=== PATIENT | female | born 1940 | race Caucasian/White ===

== ENCOUNTER 2017-08-15 10:17 | Observation (INO) ==
--- NOTE | 2017-08-15 10:35 | Emergency Department Note ---
Disposition Clinical Impression: TIA (transient ischemic attack) Altered mental status Qualifiers: Altered mental status type: unspecified Qualified Code(s): R41.82 - Altered mental status, unspecified Anemia Qualifiers: Anemia type: unspecified type Qualified Code(s): D64.9 - Anemia, unspecified Disposition: Admitted As Inpatient Condition: Fair Referrals: Luisito Mccormick MD [Primary Care Provider] - Forms: ED Satisfaction Letter Time of Disposition: 12:10 Altered Mental Status HPI - General Chief Complaint: ED Altered Mental Status Stated Complaint: Confused (I really don't Know) Time Seen by Provider: 08/15/17 10:21 Source: patient Mode of arrival: ambulatory Limitations: no limitations Nursing Notes Reviewed: Yes Vital Signs Reviewed: Yes - History of Present Illness HPI Narrative: 77-year-old female with history of hypertension, diabetes, CAD, CVA presents for evaluation of confusion. Patient's history is provided via the daughter/ POA at bedside. Daughter states the patient's last and well was approximately 6 or 7:00 last night. Daughter went to check on her this morning around 9:00 and noted the patient was not acting appropriately. States that the patient was questioning why she was at the house. Also states the patient started feeling the sink with water and then walked away. Notes the patient also had some slurred speech and that "her mouth looked funny". Daughter states she is concerned about a stroke as the patient does have a history of stroke. Daughter states the patient has not been complaining of anything over the past 24 hours. No chest pain or shortness of breath. No abdominal pain. No nausea or vomiting. Patient's blood glucose at home was 194. Patient states that she feels generally weak. No change in vision. Denies any fevers or change in medications. - Related Data Home Medications Medication Instructions Recorded Confirmed Amlodipine Besylate 10 mg PO DAILY 04/29/17 08/15/17 Aspirin [Lo-Dose Aspirin EC] 81 mg PO DAILY 04/29/17 08/15/17 Atorvastatin [Lipitor] 40 mg PO HS 04/29/17 08/15/17 Calcium Carb, Citrate/Vit D3 1 tab PO DAILY 04/29/17 08/15/17 [Calcium + D3 ER Tablet] Clopidogrel [Plavix] 75 mg PO DAILY 04/29/17 08/15/17 Dicyclomine [Bentyl] 10 mg PO TID 04/29/17 08/15/17 Ergocalciferol (VITAMIN D2) 50,000 unit PO QWEEK 04/29/17 08/15/17 [Vitamin D2] Gabapentin [Neurontin] 100 mg PO DAILY 04/29/17 08/15/17 Insulin DETEMIR [Levemir Flextouch] 68 units SQ BID 04/29/17 08/15/17 Isosorbide MONOnitrate (24 HR) 60 mg PO DAILY 04/29/17 08/15/17 [Imdur] Metformin HCl [Glucophage Xr] 750 mg PO DAILY 04/29/17 08/15/17 Metoprolol Tartrate [Lopressor] 50 mg PO BID 04/29/17 08/15/17 Mirtazapine [Remeron] 30 mg PO HS 04/29/17 08/15/17 Oxycodone HCl 15 mg PO TID 04/29/17 08/15/17 Potassium Chloride [K-Tab ER] 20 meq PO BID 04/29/17 08/15/17 Sertraline [Zoloft] 150 mg PO DAILY 04/29/17 08/15/17 Sucralfate [Carafate] 1 gm PO BID 04/29/17 08/15/17 Timolol Maleate 0.5% 1 drop OP DAILY 04/29/17 08/15/17 Venlafaxine HCl [Venlafaxine HCl 75 mg PO BID 04/29/17 08/15/17 ER] Allergies Allergy/AdvReac Type Severity Reaction Status Date / Time No Known Allergies Allergy Verified 04/29/17 10:37 All systems ED: reviewed and negative except as stated. 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 - Social History Smoking Status: Never smoker Smokeless Tobacco Status: No Alcohol use: Reports: none Drug use: Reports: none Physical Exam - General Limitations: altered mental status General appearance: alert, in no apparent distress - Head Head exam: atraumatic, normocephalic, normal inspection - Eye Eye exam: Present: normal appearance, PERRL, EOMI - ENT ENT exam: normal exam, mucous membranes moist - Neck Neck exam: Present: normal inspection, trachea midline - Chest Chest inspection: Present: normal inspection, symmetric chest wall rise - Respiratory Respiratory exam: Present: normal lung sounds bilaterally. Absent: respiratory distress - Cardiovascular Cardiovascular exam: Present: regular rate, normal rhythm. Absent: systolic murmur - Abdominal Exam Abdominal exam: Present: soft, Non-Tender - Extremities Exam Extremities exam: Present: normal inspection. Absent: pedal edema - Expanded Lower Extremity Exam Neurovascular/Tendon exam: Present: normal capillary refill - Back Exam Back exam: Present: normal inspection - Neurological Exam Neurological exam: Present: alert, CN II-XII intact, other (NIH 0). Absent: oriented X3 - Expanded Neurological Exam Patient oriented to: Present: person. Absent: place, time (Confused to situation, time.) Speech: Present: fluid speech Cranial nerves: EOM function (II, III, IV, ): Normal, facial sensation (V): Normal, facial palsy (VII): Normal, spinal accessory function (XI): Normal, tongue deviation (XII): Normal Cerebellar function: finger to nose: Normal (slowing to movement) Motor strength - LUE: 5/5 Motor strength - RUE: 5/5 Motor strength - LLE: 5/5 Motor strength - RLE: 5/5 Upper motor neuron exam: pronator drift: Absent bilaterally Coma Scale Eye Opening: Spontaneous Coma Scale Motor Response: Obeys Commands Coma Scale Verbal Response: Confused Coma Scale Total: 14 - Skin Skin exam: Present: warm, dry, intact, normal color Course Course Narrative: Patient seen and examined. Patient was not a stroke alert given Tylenol onset. Patient does have a CVA history. Patient will get an extensive evaluation including a CT of the head, chest x-ray, basic labs as well as urinalysis. Disposition likely admission. - Reevaluation(s) Reevaluation #1: Patient seen and examined. Patient is now able to recall the day. Daughter states she possibly is improving. Continues to have a nonfocal neurologic exam. Time: 12:09 Vital Signs Temperature 98.2 F 07/07/18 10:19 Pulse Rate 61 08/15/17 10:19 Respiratory Rate 18 08/15/17 10:19 Blood Pressure 160/84 08/15/17 10:19 O2 Sat by Pulse Oximetry 95 08/15/17 10:19 Temperature 98.2 F 08/15/17 10:22 Pulse Rate 59 08/15/17 11:25 Respiratory Rate 18 08/15/17 11:25 Blood Pressure 156/57 08/15/17 11:25 O2 Sat by Pulse Oximetry 95 08/15/17 11:25 Oxygen Delivery Oxygen Delivery Room Air Altered Mental Status - MDM Narrative Medical decision making narrative: Patient presents for concerns of confusion. Does not have a history of dementia. History provided via the family. Patient's alert but pleasantly confused GCS of 14. Nonfocal neurologic exam. 0. Patient's head CT was negative and with history of CVA was given an aspirin. Patient chest x-ray also was negative. Patient's labs are clinically unremarkable. Patient does have a history of anemia which appears to be at baseline from prior evaluations. Electrolytes or unremarkable. Patient will be admitted for altered mental status confusion. Etiology unknown however CVA/TIA is in the differential. Patient's symptoms can continue this progressed slightly during the ED course. Patient is not able to recall the day. Patient does not have any signs of encephalitis with no fever. Patient also likely benefit from discharge planning and formal physical therapy. - Lab Data Lab results reviewed: Yes I reviewed the patient's lab results. Result diagrams: 08/15/17 10:47 08/15/17 10:47 Lab Results 08/15/17 08/15/17 08/15/17 Range/Units 10:32 10:47 10:47 WBC 9.4 (4.3-11.1) K/mcL RBC 3.91 (3.82-4.97) M/mcL Hgb 9.9 L (11.5-15.4) g/dL Hct 31.6 L (35.3-44.9) % MCV 80.8 L (83.0-100.0) fL MCH 25.3 L (28.0-33.3) pg MCHC 31.3 L (31.6-35.5) g/dL RDW 16.3 H (11.5-14.5) % Plt Count 333 (140-400) K/mcL MPV 9.0 L (9.4-12.4) fL Immature Gran % 0.2 (0-4) % Seg Neutrophils % 61.5 % Lymphocytes % 26.5 % Monocytes % 9.0 % Eosinophils % 2.5 % Basophils % 0.3 % Neutrophils # 5.8 (1.6-8.9) K/mcL Lymphocytes # 2.5 (0.6-4.6) K/mcL Monocytes # 0.9 (0.0-1.3) K/mcL Eosinophils # 0.2 (0.0-0.6) K/mcL Basophils # 0.0 (0.0-0.2) K/mcL PT 11.0 (9.4-12.1) Seconds INR 1.0 Sodium (136-145) mEq/L Potassium (3.5-5.1) mEq/L Chloride (98-107) mEq/L Carbon Dioxide (23-29) mEq/L BUN (8-23) mg/dL Creatinine (0.60-1.20) mg/dL Est GFR ( Amer) (> 60) Est GFR (Non-Af Amer) (> 60) BUN/Creatinine Ratio (6-26) Glucose (70-105) mg/dL POC Glucose 172 H (70-99) mg/dL Calculated Osmolality (280-300) Calcium (8.6-10.3) mg/dL Total Bilirubin (0.3-1.0) mg/dL Direct Bilirubin (0.0-0.2) mg/dL Indirect Bilirubin (0.0-1.2) mg/dL AST (13-39) Units/L ALT (7-52) Units/L Alkaline Phosphatase (34-104) Units/L Troponin I (< 0.04) ng/mL Serum Total Protein (6.4-8.9) g/dL Albumin (3.5-5.7) g/dL Globulin (2.4-3.5) g/dL Albumin/Globulin Ratio (1.1-2.2) Urine Color (Yellow) Urine Clarity (Clear) Urine pH (5.0-8.0) pH Units Ur Specific [place] (1.010-1.025) Urine Protein (Neg-Trace) mg/dL Urine Glucose (UA) (Normal) mg/dL Urine Ketones (Negative) mg/dL Urine Blood (Negative) Urine Nitrite (Negative) Urine Bilirubin (Negative) Urine Urobilinogen (Normal) mg/dL Ur Leukocyte Esterase (Negative) Urine Microscopic RBC (0-3) per hpf Urine Microscopic WBC (0-3) per hpf Ur Squamous Epith Cells (None-Few) per lpf Urine Bacteria (None-Few) per hpf Hyaline Casts (None-Few) per lpf Ur Culture Indicated? (NO) 08/15/17 08/15/17 Range/Units 10:47 11:51 WBC (4.3-11.1) K/mcL RBC (3.82-4.97) M/mcL Hgb (11.5-15.4) g/dL Hct (35.3-44.9) % MCV (83.0-100.0) fL MCH (28.0-33.3) pg MCHC (31.6-35.5) g/dL RDW (11.5-14.5) % Plt Count (140-400) K/mcL MPV (9.4-12.4) fL Immature Gran % (0-4) % Seg Neutrophils % % Lymphocytes % % Monocytes % % Eosinophils % % Basophils % % Neutrophils # (1.6-8.9) K/mcL Lymphocytes # (0.6-4.6) K/mcL Monocytes # (0.0-1.3) K/mcL Eosinophils # (0.0-0.6) K/mcL Basophils # (0.0-0.2) K/mcL PT (9.4-12.1) Seconds INR Sodium 133 L (136-145) mEq/L Potassium 4.5 (3.5-5.1) mEq/L Chloride 101 (98-107) mEq/L Carbon Dioxide 25 (23-29) mEq/L BUN 22 (8-23) mg/dL Creatinine 0.88 (0.60-1.20) mg/dL Est GFR ( Amer) > 60 (> 60) Est GFR (Non-Af Amer) > 60 (> 60) BUN/Creatinine Ratio 25 (6-26) Glucose 161 H (70-105) mg/dL POC Glucose (70-99) mg/dL Calculated Osmolality 283 (280-300) Calcium 9.1 (8.6-10.3) mg/dL Total Bilirubin 0.2 L (0.3-1.0) mg/dL Direct Bilirubin 0.0 (0.0-0.2) mg/dL Indirect Bilirubin 0.2 (0.0-1.2) mg/dL AST 16 (13-39) Units/L ALT 10 (7-52) Units/L Alkaline Phosphatase 82 (34-104) Units/L Troponin I < 0.03 (< 0.04) ng/mL Serum Total Protein 6.9 (6.4-8.9) g/dL Albumin 3.9 (3.5-5.7) g/dL Globulin 3.0 (2.4-3.5) g/dL Albumin/Globulin Ratio 1.3 (1.1-2.2) Urine Color Yellow (Yellow) Urine Clarity Clear (Clear) Urine pH 6.0 (5.0-8.0) pH Units Ur Specific [place] 1.014 (1.010-1.025) Urine Protein Negative (Neg-Trace) mg/dL Urine Glucose (UA) Normal (Normal) mg/dL Urine Ketones Negative (Negative) mg/dL Urine Blood Negative (Negative) Urine Nitrite Negative (Negative) Urine Bilirubin Negative (Negative) Urine Urobilinogen Normal (Normal) mg/dL Ur Leukocyte Esterase Trace H (Negative) Urine Microscopic RBC 3-5 H (0-3) per hpf Urine Microscopic WBC 0-3 (0-3) per hpf Ur Squamous Epith Cells Many H (None-Few) per lpf Urine Bacteria None Seen (None-Few) per hpf Hyaline Casts None Seen (None-Few) per lpf Ur Culture Indicated? NO. A (NO) - Radiology Data Radiology results reviewed: Yes I reviewed the patient's radiology results. Chest X-Ray 08/15/17 10:32 IMPRESSION: No acute process. D/ / Jan Reagan MD / Jan Reagan MD Interpreting Provider: Jan Reagan MD Head CT 08/15/17 10:32 IMPRESSION: No acute intracranial abnormality. Diffuse atrophic changes with findings suggesting chronic microvascular ischemia D/ / Jan Reagan MD / Jan Reagan MD Interpreting Provider: Jan Reagan MD - EKG Data EKG attestation: Yes I reviewed and interpreted this EKG. EKG shows normal: sinus rhythm Rate: normal Rhythm: NSR [place]/QRS: left axis deviation, LBBB QTc: other (488) Interpretation: no acute changes, nonspecific ST-T wave changes TPA Checklist - LKW: 3-4.5 hrs Add. Warnings/Precautions Patient/family understanding: The patient/family members have been counseled and understood the risk, benefit , and alternatives of treatment. S.B.Meghan - S.Laquita Situation: Demographics Background: Presenting Complaint Assessment: Vital Signs, Course and respsone to treatment, Patient/Family Expectation Recommendation: Barrier(s) to disposition, Recommendation based on pending studies, treatments, or consults S.B.AGaudencio Report Given to: Dr. Lee Mccarthy Repor Time: 12:10
[2017-08-15 11:01] LABS: Basophils % 0.3 %; Eosinophils # 0.2 K/mcL (0.0-0.6); Eosinophils % 2.5 %; Hematocrit 31.6 % (35.3-44.9); Hemoglobin 9.9 g/dL (11.5-15.4); Immature Granulocytes % 0.2 % (0-4); Lymphocytes # 2.5 K/mcL (0.6-4.6); Lymphocytes % 26.5 %; Mean Corpuscular HGB Conc 31.3 g/dL (31.6-35.5); Mean Corpuscular Hemoglobin 25.3 pg (28.0-33.3); Mean Corpuscular Volume 80.8 fL (83.0-100.0); Monocytes # 0.9 K/mcL (0.0-1.3); Neutrophils # 5.8 K/mcL (1.6-8.9); Platelet Count 333 K/mcL (140-400); Red Blood Count 3.91 M/mcL (3.82-4.97); Red Cell Distribution Width 16.3 % (11.5-14.5); Segmented Neutrophils % 61.5 %
[2017-08-15 11:22] LABS: Troponin I < 0.03 ng/mL (< 0.04)
[2017-08-15 11:24] LABS: Alanine Aminotransferase 10 Units/L (7-52); Albumin 3.9 g/dL (3.5-5.7); Albumin/Globulin Ratio 1.3 (1.1-2.2); Alkaline Phosphatase 82 Units/L (34-104); Aspartate Amino Transferase 16 Units/L (13-39); BUN/Creatinine Ratio 25 (6-26); Bilirubin,Indirect 0.2 mg/dL (0.0-1.2); Bilirubin,Total 0.2 mg/dL (0.3-1.0); Blood Urea Nitrogen 22 mg/dL (8-23); Calcium 9.1 mg/dL (8.6-10.3); Carbon Dioxide 25 mEq/L (23-29); Chloride 101 mEq/L (98-107); Glucose 161 mg/dL (70-105); Osmolality,Calculated 283 (280-300); Potassium 4.5 mEq/L (3.5-5.1); Sodium 133 mEq/L (136-145); Total Protein 6.9 g/dL (6.4-8.9); eGFR For African Americans > 60 (> 60); eGFR For Non-African Americans > 60 (> 60)
[2017-08-15] MEDS ORDERED: Aspirin 325 MG TABLET PO ONE (11:28)
[2017-08-15 11:58] LABS: Bilirubin,Urine Negative (Negative); Blood,Urine Negative (Negative); Clarity,Urine Clear (Clear); Color,Urine Yellow (Yellow); Glucose,Urine (UA) Normal (Normal); Ketones,Urine Negative (Negative); Leukocyte Esterase,Urine Trace (Negative); Nitrite,Urine Negative (Negative); Protein,Urine Negative (Neg-Trace); Specific Gravity,Urine 1.014 (1.010-1.025); Urobilinogen,Urine Normal (Normal)
[2017-08-15 12:00] LABS: Bacteria,Urine None Seen per hpf (None-Few); Hyaline Casts,Urine None Seen per lpf (None-Few); Squamous Epithelial Cell,Urine Many per lpf (None-Few); WBC,Urine 0-3 per hpf (0-3)
--- NOTE | 2017-08-15 12:46 | Emergency Department Note ---
Disposition Clinical Impression: TIA (transient ischemic attack) Altered mental status Qualifiers: Altered mental status type: unspecified Qualified Code(s): R41.82 - Altered mental status, unspecified Anemia Qualifiers: Anemia type: unspecified type Qualified Code(s): D64.9 - Anemia, unspecified Disposition: Admitted As Inpatient Condition: Fair General Adult HPI - General Chief complaint: ED Altered Mental Status Stated complaint: Confused (I really don't Know) Time Seen by Provider: 08/15/17 10:21 Source: patient Mode of arrival: ambulatory Limitations: altered mental status - History of Present Illness Pain Scale: 0 - Related Data Home Medications Medication Instructions Recorded Confirmed Amlodipine Besylate 10 mg PO DAILY 04/29/17 08/15/17 Aspirin [Lo-Dose Aspirin EC] 81 mg PO DAILY 04/29/17 08/15/17 Atorvastatin [Lipitor] 40 mg PO HS 04/29/17 08/15/17 Calcium Carb, Citrate/Vit D3 1 tab PO DAILY 04/29/17 08/15/17 [Calcium + D3 ER Tablet] Clopidogrel [Plavix] 75 mg PO DAILY 04/29/17 08/15/17 Dicyclomine [Bentyl] 10 mg PO TID 04/29/17 08/15/17 Ergocalciferol (VITAMIN D2) 50,000 unit PO QWEEK 04/29/17 08/15/17 [Vitamin D2] Gabapentin [Neurontin] 100 mg PO DAILY 04/29/17 08/15/17 Insulin DETEMIR [Levemir Flextouch] 68 units SQ BID 04/29/17 08/15/17 Isosorbide MONOnitrate (24 HR) 60 mg PO DAILY 04/29/17 08/15/17 [Imdur] Metformin HCl [Glucophage Xr] 750 mg PO DAILY 04/29/17 08/15/17 Metoprolol Tartrate [Lopressor] 50 mg PO BID 04/29/17 08/15/17 Mirtazapine [Remeron] 30 mg PO HS 04/29/17 08/15/17 Oxycodone HCl 15 mg PO TID 04/29/17 08/15/17 Potassium Chloride [K-Tab ER] 20 meq PO BID 04/29/17 08/15/17 Sertraline [Zoloft] 150 mg PO DAILY 04/29/17 08/15/17 Sucralfate [Carafate] 1 gm PO BID 04/29/17 08/15/17 Timolol Maleate 0.5% 1 drop OP DAILY 04/29/17 08/15/17 Venlafaxine HCl [Venlafaxine HCl 75 mg PO BID 04/29/17 08/15/17 ER] Allergies Allergy/AdvReac Type Severity Reaction Status Date / Time No Known Allergies Allergy Verified 04/29/17 10:37 Constitutional: Reports: as per HPI Cardiovascular: Denies: chest pain Respiratory: Denies: cough, dyspnea Gastrointestinal: Denies: abdominal pain, nausea, vomiting Past Medical History - Past Medical History Medical history: Reports: arthritis, cancer, coronary artery disease, diabetes, hyperlipidemia, hypertension, osteoporosis, other Surgical history: Reports: appendectomy, hysterectomy, knee replacement, other Psychiatric history: Reports: depression 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 - Social History Smoking Status: Never smoker Smokeless Tobacco Status: No Alcohol use: Reports: none Drug use: Reports: none Physical Exam - General Limitations: altered mental status General appearance: alert, in no apparent distress Course Vital Signs Temperature 98.2 F 08/15/17 10:19 Pulse Rate 61 08/15/17 10:19 Respiratory Rate 18 08/15/17 10:19 Blood Pressure 160/84 08/15/17 10:19 O2 Sat by Pulse Oximetry 95 08/15/17 10:19 Temperature 98.2 F 08/15/17 10:22 Pulse Rate 59 08/15/17 11:25 Respiratory Rate 18 08/15/17 11:25 Blood Pressure 156/57 08/15/17 11:25 O2 Sat by Pulse Oximetry 95 08/15/17 11:25 Oxygen Delivery Oxygen Delivery Room Air Medical Decision Making - Lab Data Result diagrams: 08/15/17 10:47 08/15/17 10:47 Lab Results 08/15/17 08/15/17 08/15/17 Range/Units 10:32 10:47 10:47 WBC 9.4 (4.3-11.1) K/mcL RBC 3.91 (3.82-4.97) M/mcL Hgb 9.9 L (11.5-15.4) g/dL Hct 31.6 L (35.3-44.9) % MCV 80.8 L (83.0-100.0) fL MCH 25.3 L (28.0-33.3) pg MCHC 31.3 L (31.6-35.5) g/dL RDW 16.3 H (11.5-14.5) % Plt Count 333 (140-400) K/mcL MPV 9.0 L (9.4-12.4) fL Immature Gran % 0.2 (0-4) % Seg Neutrophils % 61.5 % Lymphocytes % 26.5 % Monocytes % 9.0 % Eosinophils % 2.5 % Basophils % 0.3 % Neutrophils # 5.8 (1.6-8.9) K/mcL Lymphocytes # 2.5 (0.6-4.6) K/mcL Monocytes # 0.9 (0.0-1.3) K/mcL Eosinophils # 0.2 (0.0-0.6) K/mcL Basophils # 0.0 (0.0-0.2) K/mcL PT 11.0 (9.4-12.1) Seconds INR 1.0 Sodium (136-145) mEq/L Potassium (3.5-5.1) mEq/L Chloride (98-107) mEq/L Carbon Dioxide (23-29) mEq/L BUN (8-23) mg/dL Creatinine (0.60-1.20) mg/dL Est GFR ( Amer) (> 60) Est GFR (Non-Af Amer) (> 60) BUN/Creatinine Ratio (6-26) Glucose (70-105) mg/dL POC Glucose 172 H (70-99) mg/dL Calculated Osmolality (280-300) Calcium (8.6-10.3) mg/dL Total Bilirubin (0.3-1.0) mg/dL Direct Bilirubin (0.0-0.2) mg/dL Indirect Bilirubin (0.0-1.2) mg/dL AST (13-39) Units/L ALT (7-52) Units/L Alkaline Phosphatase (34-104) Units/L Troponin I (< 0.04) ng/mL Serum Total Protein (6.4-8.9) g/dL Albumin (3.5-5.7) g/dL Globulin (2.4-3.5) g/dL Albumin/Globulin Ratio (1.1-2.2) Urine Color (Yellow) Urine Clarity (Clear) Urine pH (5.0-8.0) pH Units Ur Specific [place] (1.010-1.025) Urine Protein (Neg-Trace) mg/dL Urine Glucose (UA) (Normal) mg/dL Urine Ketones (Negative) mg/dL Urine Blood (Negative) Urine Nitrite (Negative) Urine Bilirubin (Negative) Urine Urobilinogen (Normal) mg/dL Ur Leukocyte Esterase (Negative) Urine Microscopic RBC (0-3) per hpf Urine Microscopic WBC (0-3) per hpf Ur Squamous Epith Cells (None-Few) per lpf Urine Bacteria (None-Few) per hpf Hyaline Casts (None-Few) per lpf Ur Culture Indicated? (NO) 08/15/17 08/15/17 Range/Units 10:47 11:51 WBC (4.3-11.1) K/mcL RBC (3.82-4.97) M/mcL Hgb (11.5-15.4) g/dL Hct (35.3-44.9) % MCV (83.0-100.0) fL MCH (28.0-33.3) pg MCHC (31.6-35.5) g/dL RDW (11.5-14.5) % Plt Count (140-400) K/mcL MPV (9.4-12.4) fL Immature Gran % (0-4) % Seg Neutrophils % % Lymphocytes % % Monocytes % % Eosinophils % % Basophils % % Neutrophils # (1.6-8.9) K/mcL Lymphocytes # (0.6-4.6) K/mcL Monocytes # (0.0-1.3) K/mcL Eosinophils # (0.0-0.6) K/mcL Basophils # (0.0-0.2) K/mcL PT (9.4-12.1) Seconds INR Sodium 133 L (136-145) mEq/L Potassium 4.5 (3.5-5.1) mEq/L Chloride 101 (98-107) mEq/L Carbon Dioxide 25 (23-29) mEq/L BUN 22 (8-23) mg/dL Creatinine 0.88 (0.60-1.20) mg/dL Est GFR ( Amer) > 60 (> 60) Est GFR (Non-Af Amer) > 60 (> 60) BUN/Creatinine Ratio 25 (6-26) Glucose 161 H (70-105) mg/dL POC Glucose (70-99) mg/dL Calculated Osmolality 283 (280-300) Calcium 9.1 (8.6-10.3) mg/dL Total Bilirubin 0.2 L (0.3-1.0) mg/dL Direct Bilirubin 0.0 (0.0-0.2) mg/dL Indirect Bilirubin 0.2 (0.0-1.2) mg/dL AST 16 (13-39) Units/L ALT 10 (7-52) Units/L Alkaline Phosphatase 82 (34-104) Units/L Troponin I < 0.03 (< 0.04) ng/mL Serum Total Protein 6.9 (6.4-8.9) g/dL Albumin 3.9 (3.5-5.7) g/dL Globulin 3.0 (2.4-3.5) g/dL Albumin/Globulin Ratio 1.3 (1.1-2.2) Urine Color Yellow (Yellow) Urine Clarity Clear (Clear) Urine pH 6.0 (5.0-8.0) pH Units Ur Specific [place] 1.014 (1.010-1.025) Urine Protein Negative (Neg-Trace) mg/dL Urine Glucose (UA) Normal (Normal) mg/dL Urine Ketones Negative (Negative) mg/dL Urine Blood Negative (Negative) Urine Nitrite Negative (Negative) Urine Bilirubin Negative (Negative) Urine Urobilinogen Normal (Normal) mg/dL Ur Leukocyte Esterase Trace H (Negative) Urine Microscopic RBC 3-5 H (0-3) per hpf Urine Microscopic WBC 0-3 (0-3) per hpf Ur Squamous Epith Cells Many H (None-Few) per lpf Urine Bacteria None Seen (None-Few) per hpf Hyaline Casts None Seen (None-Few) per lpf Ur Culture Indicated? NO. A (NO) Attestation Statement - Attestation Attestation: I examined this patient and my medical decision-making was reviewed with the Resident Physician. I agree with the documented findings, disposition and treatment plan as described except to the extent set forth below. 77 year old femael who is altered and disoriented but alert. PAtinet has concerns for TIA, and appears confused at bedside, LKW was last night. We will admit to medicine for TIA rule out CVA
[2017-08-15] MEDS ORDERED: Naloxone 0.4 MG/ML INJ IVP PRN (13:02)
[2017-08-15] MEDS ORDERED: Acetaminophen 325 MG TABLET PO PRN (13:02)
[2017-08-15] MEDS ORDERED: D5% in Water 1,000 ML IVC PRN (13:09)
[2017-08-15] MEDS ORDERED: Dextrose Gel 15 GM/37.5 ML TUBE PO PRN ×2 (13:09)
[2017-08-15] MEDS ORDERED: *HR* Dextrose 50 % in Water (Syg) 50 ML SYRINGE IVP PRN (13:09)
--- NOTE | 2017-08-15 13:26 | Internal Med History&Physical ---
<MigdaliaGilbert machuca - Last Filed: 08/15/17 14:34> Date of Encounter: 08/15/17 Time of Encounter: 12:30 Internal Medicine - H&P: HPI Chief complaint: CVA sx Admitted From: Emergency Dept Plans for Post Hospital Care: Home History of present illness: Ms. Stoddard is a 77 year old female w/PMH of arthritis, cervical cancer in 1968 and ovarian cancer in 1996, CAD, diabetes controlled with oral anti- hyperglycemic medications and insulin, HLD, HTN, and osteoporosis presents from the ED with chief complaint of stroke-like symptoms that began this morning. Pts. daughter reports at 7 p.m. last night the pt. was acting normal and this morning she was altered. Pt. reports not remembering going to bed or events that occurred this morning. Pt. reports right-sided weakness from previous stroke 4-5 years ago. Pt. denies recent illness, fever, chills, nausea, vomiting , changes in vision, headache, chest pain, shortness of breath, chest congestion , abdominal pain, diarrhea, constipation, dizziness, lightheadedness, numbness, tingling, pre-syncope, or syncope. Past Med Surg Social Fam HX - Past Medical History Source: patient, old records reviewed Medical history: arthritis, cancer (Cervical in 1968 and Ovarian in 1996), coronary artery disease, diabetes, hyperlipidemia, hypertension, osteoporosis, other Additional medical history: Chronic Back Pain DDD and stenosis. Anxiety. Depression. Vit D deficiency. DM2. DLD. DVT. Scoliosis. HLD. Diverticulosis. CP. UTI. Hypomagnemia. SOB. LHC small Ramus 80% stenosis Psychiatric history: depression - Past Surgical History Surgical History: appendectomy, hysterectomy (Total), knee replacement, other Additional surgical history: bilat total knee 2002. HYST 1968. Ovarian Cancer 1986. Ventral Hernia 1998. knee scope. TIA 1995. Heart cath no stents. EGD - Social History Smoking Status: Never smoker Smokeless Tobacco Status: No Alcohol use: none Drug use: none Current living situation: Home Activity Level: Independent ambulation, Uses cane/walker Recent Out of Country Travel Within the Last 8 Weeks: No Exposure or Possible Exposure to Illness During Travel: No - Family History Mother Race: Family Member Ethnicity: Non- Living Status: Age at : 65 Cause of : Female cancer Hx Family Cancer: Yes (Breast, Female) Father History Unknown: Yes Race: Sister Race: Family Member Ethnicity: Non- Living Status: Age at : 49 Cause of : Breast cancer Hx Family Cancer: Yes (Breast) Grandfather Race: Family Member Ethnicity: Non- Living Status: Age at : 72 Cause of : CVA Hx Family Cardiac Disorders: Yes (CVA) Hx Family Neurologic Disorders: Yes (CVA) Internal Medicine - H&P: Meds Amlodipine Besylate 10 mg PO DAILY 04/29/17 [History] Aspirin [Lo-Dose Aspirin EC] 81 mg PO DAILY 04/29/17 [History] Atorvastatin [Lipitor] 40 mg PO HS 04/29/17 [History] Calcium Carb, Citrate/Vit D3 [Calcium + D3 ER Tablet] 1 tab PO DAILY 04/29/17 [ History] Clopidogrel [Plavix] 75 mg PO DAILY 04/29/17 [History] Dicyclomine [Bentyl] 10 mg PO TID 04/29/17 [History] Ergocalciferol (VITAMIN D2) [Vitamin D2] 50,000 unit PO QWEEK 04/29/17 [History] Gabapentin [Neurontin] 100 mg PO DAILY 04/29/17 [History] Insulin DETEMIR [Levemir Flextouch] 68 units SQ BID 04/29/17 [History] Isosorbide MONOnitrate (24 HR) [Imdur] 60 mg PO DAILY 04/29/17 [History] Metformin HCl [Glucophage Xr] 750 mg PO DAILY 04/29/17 [History] Metoprolol Tartrate [Lopressor] 50 mg PO BID 04/29/17 [History] Mirtazapine [Remeron] 30 mg PO HS 04/29/17 [History] Oxycodone HCl 15 mg PO TID 04/29/17 [History] Potassium Chloride [K-Tab ER] 20 meq PO BID 04/29/17 [History] Sertraline [Zoloft] 150 mg PO DAILY 04/29/17 [History] Sucralfate [Carafate] 1 gm PO BID 04/29/17 [History] Timolol Maleate 0.5% 1 drop OP DAILY 04/29/17 [History] Venlafaxine HCl [Venlafaxine HCl ER] 75 mg PO BID 04/29/17 [History] 3 Allergy/AdvReac Type Severity Reaction Status Date / Time No Known Allergies Allergy Verified 04/29/17 10:37 All Systems PM: A 10-system review of systems was performed and is negative for pertinent findings except as documented above in the HPI. - Constitutional Constitutional: as per HPI, weakness (Right-sided in UE/LE), no chills, no fever (s), no night sweats - EENT Eyes: no change in vision, no discharge, no pain, no photophobia Ears: no ear discharge, no ear pain, no tinnitus Nose, mouth and throat: no dysphagia, no nasal discharge, no neck pain, no sore throat - Breasts Breasts: as per HPI - Cardiovascular Cardiovascular ROS IM: no chest pain, no diaphoresis, no dyspnea, no lightheadedness, no palpitations, no syncope - Respiratory Respiratory: no cough, no dyspnea, no wheezing, no excessive phlegm production - Gastrointestinal Gastrointestinal: no abdominal pain, no diarrhea, no hematemesis, no hematochezia, no melena, no nausea, no vomiting - Genitourinary Genitourinary: no change in urinary stream, no dysuria, no flank pain, no hematuria Menstruation: as per HPI, post hysterectomy (Total) - Musculoskeletal Musculoskeletal ROS IM: as per HPI, arthralgias, no numbness, no tingling - Integumentary Integumentary IM: as per HPI, no rash, no unusual bruising - Neurological Neurological ROS: as per HPI, confusion, disequilibrium, weakness (Weakness of right-sided UE/LE), no convulsions, no focal weakness, no numbness, no tingling , no tremor(s) - Psychiatric Psychiatric: as per HPI, depression - Endocrine Endocrine IM: as per HPI - Hematologic/Lymphatic Hematologic/Lymphatic: no easy bruising - Allergic/Immunologic Allergic/Immunologic: as per HPI - Constitutional Vitals: Temp Pulse Resp BP Pulse Ox 98.2 F 59 18 147/69 95 08/15/17 10:22 08/15/17 11:25 08/15/17 12:46 08/15/17 12:46 08/15/17 11:25 General appearance: Present: cooperative, A&O X 3, pleasant, no acute distress, obese, answers questions appropriately - Head Head exam: Present: atraumatic, normocephalic - Eye Eye exam: Present: PERRL, conjuntiva pink, sclera anicteric Pupils: Present: PERRL - ENT ENT exam: Present: normal exam - Neck Neck exam general surgery: Present: normal inspection, supple, trachea midline. Absent: lymphadenopathy - Respiratory Respiratory exam: Present: CTAB. Absent: accessory muscle use, rales, rhonchi, wheezes - Cardiovascular Cardiovascular exam: Present: bradycardia, +S1, +S2. Absent: diastolic murmur, gallop, rubs, systolic murmur - GI/Abdominal GI/Abdominal exam: Present: normal bowel sounds, soft, no peritoneal signs. Absent: distended, tenderness - Rectal Rectal exam: Present: deferred - Additional comments: exam deferred. - Extremities Exam Extremities exam: Present: warm, radial pulses palpable and symmetrical. Absent : calf tenderness, cyanotic, pedal edema - Back Exam Back exam: Present: normal inspection - Neurological Exam Neurological exam: Present: alert, CN II-XII intact, oriented X3, no focal deficits. Absent: pronater drift, facial droop, speech deficit - Psychiatric Psychiatric exam: Present: normal affect, normal mood - Skin Skin exam: Present: dry, intact Internal Med - H&P Results - Labs CBC & Chem 7: 08/15/17 10:47 08/15/17 10:47 - EKG Data EKG shows normal: sinus rhythm Rate: bradycardia - EKG Data Prior EKG available for review: yes EKG comments: 08/15/17 13:33 EKG dated 04/15/17 shows sinus rhythm with marked left axis deviation and LBBB. EKG dated 08/15/17 shows sinus bradycardia and LBBB. - Diagnostic Studies CT scan - head Additional comments: Impressions Head CT 08/15/17 10:32 IMPRESSION: No acute intracranial abnormality. Diffuse atrophic changes with findings suggesting chronic microvascular ischemia D/ / Jan Reagan MD / Jan Reagan MD Interpreting Provider: Jan Reagan MD Chest x-ray Additional comments: Impressions Chest X-Ray 08/15/17 10:32 IMPRESSION: No acute process. D/ / Jan Reagan MD / Jan Reagan MD Interpreting Provider: Jan Reagan MD - Assessment and plan (1) TIA (transient ischemic attack) Current Visit: Yes Status: Acute Assessment and plan: Acute AMS since this morning. Pts. daughter reports facial droop. Pt. has previous hx of CVA approx. 4-5 years ago. NIHSS scale. Neuro assessments Q2HR. Padding to bed rails. On exam, pt. has no focal deficits, speech slurring, facial droop, or pronator drift. Right-sided weakness in UE/LE as residual from previous CVA. CT unremarkable. Dysphagia screen. NPO until dysphagia screen passed. Aspirin. Echocardiogram. Bilateral carotid Dopplers. MRI of head/brain ordered. Neurology consult ordered and discussed w/Dr. Silva and I appreciate the consult and recommendations as always. Heparin SQ for DVT prophylaxis after MRI resulted. Pt. discussed w/Dr. Howard who agrees w/plan of care. Pt. is high risk for neurological event and further morbidity based on current sx, hx of previous CVA, familial hx of from CVA (grandfather); and risk factors of CAD, DM, HLD, and HTN. Observation. (2) Altered mental status Current Visit: Yes Status: Acute Assessment and plan: Acute AMS since this morning. Pt. has previous hx of CVA approx. 4-5 years ago. NIHSS scale. Neuro assessments Q2HR. Padding to bed rails. On exam, pt. has no focal deficits, speech slurring, facial droop, or pronator drift. Right-sided weakness in UE/LE as residual from previous CVA. CT unremarkable. Echocardiogram. Bilateral carotid Dopplers. MRI of head/brain ordered. Neurology consult ordered and discussed w/Dr. Silva and I appreciate the consult and recommendations as always. Qualifiers: Altered mental status type: unspecified Qualified Code(s): R41.82 - Altered mental status, unspecified (3) Depression Current Visit: Yes Status: Chronic Assessment and plan: Hx of chronic depression. Continue pts. Zoloft, Venlafaxine. Qualifiers: Depression Type: unspecified Qualified Code(s): F32.9 - Major depressive disorder, single episode, unspecified (4) CAD (coronary artery disease) Current Visit: Yes Status: Chronic Assessment and plan: Hx of chronic CAD. Continuous cardiac telemetry. Echocardiogram. Continue pts. aspirin therapy, amlodipine, Lipitor, Plavix, Imdur, and Lopressor. Qualifiers: Coronary Disease-Associated Artery/Lesion type: [place] artery [place] vs. transplanted heart: [place] heart Associated angina: angina presence unspecified Qualified Code(s): I25.10 - Atherosclerotic heart disease of [place] coronary artery without angina pectoris (5) HLD (hyperlipidemia) Current Visit: Yes Status: Chronic Assessment and plan: Hx of chronic HLD. Lipid panel in a.m. labs. Continue pts. Lipitor. Qualifiers: Hyperlipidemia type: pure hypercholesterolemia Qualified Code(s): E78.00 - Pure hypercholesterolemia, unspecified; E78.0 - Pure hypercholesterolemia (6) HTN (hypertension) Current Visit: Yes Status: Chronic Assessment and plan: Hx of chronic HTN. Monitor pt. and VS. Continue pts. amlodipine, Imdur, Lopressor. Qualifiers: Hypertension type: essential hypertension Qualified Code(s): I10 - Essential (primary) hypertension (7) Anemia Current Visit: Yes Status: Chronic Assessment and plan: Hx of chronic anemia. Hgb currently 9.9 and Hct 31.6, down from 11.2 and 36.4 on 04/08/17. Pt. denies any unusual bleeding. Monitor f/u labs. Qualifiers: Anemia type: unspecified type Qualified Code(s): D64.9 - Anemia, unspecified (8) Diabetes mellitus Current Visit: Yes Status: Chronic Assessment and plan: Hx of chronic diabetes controlled w/oral medication and insulin. Hold oral anti- hyperglycemic medication and continue pts. BID insulin. Add low-dose correction insulin sliding scale w/hypoglycemic protocol. BG checks ACHS. A1c in a.m. labs. 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 Monitor pt. for signs of bleeding. (10) Hyponatremia Current Visit: Yes Status: Acute Assessment and plan: Acute hyponatremia w/sodium of 133 on admission. ).9 NS IV fluids @ 75 mL/HR. Monitor f/u labs. - Time Spent With Patient Total time spent is greater than 50% in coordination of care (as documented) at patient's floor/unit and/or counseling patient: <Sue Howard - Last Filed: 08/15/17 16:40> Date of Encounter: 08/15/17 Internal Medicine - H&P: HPI History of present illness: Ms. Stoddard is a 77 year old female All Systems PM: A 10-system review of systems was performed and is negative for pertinent findings except as documented above in the HPI. - Constitutional Vitals: Temp Pulse Resp BP Pulse Ox 97.8 F 63 18 128/72 95 08/15/17 16:16 08/15/17 16:16 08/15/17 16:16 08/15/17 16:16 08/15/17 16:16 Internal Med - H&P Results - Labs CBC & Chem 7: 08/15/17 10:47 08/15/17 10:47 - Impressions ITS Impressions Brain MRI 08/15/17 12:58 IMPRESSION: Multifocal small-vessel ischemic change bilaterally with multiple small old lacunar infarcts No acute infarct, mass or acute hemorrhage. D/ / Maciej Fraga / Maciej Fraga Interpreting Provider: Maciej Fraga - Attending Attestation Seen and assessed. Continue management for TIA. Agree with plan per [facility] ICU RN - Assessment and plan (1) Diabetes mellitus Current Visit: Yes Status: Chronic Qualifiers: Diabetes mellitus type: type 2 Diabetes mellitus remote computer terminal operator insulin use: unspecified fdc insulin use status Diabetes mellitus complication status : with unspecified complications Qualified Code(s): E11.8 - Type 2 diabetes mellitus with unspecified complications (2) Altered mental status Current Visit: Yes Status: Acute Qualifiers: Altered mental status type: unspecified Qualified Code(s): R41.82 - Altered mental status, unspecified (3) Anemia Current Visit: Yes Status: Chronic Qualifiers: Anemia type: unspecified type Qualified Code(s): D64.9 - Anemia, unspecified (4) TIA (transient ischemic attack) Current Visit: Yes Status: Acute (5) Depression Current Visit: Yes Status: Chronic Qualifiers: Depression Type: unspecified Qualified Code(s): F32.9 - Major depressive disorder, single episode, unspecified (6) CAD (coronary artery disease) Current Visit: Yes Status: Chronic Qualifiers: Coronary Disease-Associated Artery/Lesion type: [place] artery [place] vs. transplanted heart: [place] heart Associated angina: angina presence unspecified Qualified Code(s): I25.10 - Atherosclerotic heart disease of [place] coronary artery without angina pectoris (7) HLD (hyperlipidemia) Current Visit: Yes Status: Chronic Qualifiers: Hyperlipidemia type: pure hypercholesterolemia Qualified Code(s): E78.00 - Pure hypercholesterolemia, unspecified; E78.0 - Pure hypercholesterolemia (8) HTN (hypertension) Current Visit: Yes Status: Chronic Qualifiers: Hypertension type: essential hypertension Qualified Code(s): I10 - Essential (primary) hypertension (9) DVT prophylaxis Current Visit: Yes Status: Acute (10) Hyponatremia Current Visit: Yes Status: Acute - Time Spent With Patient Total time spent is greater than 50% in coordination of care (as documented) at patient's floor/unit and/or counseling patient:
[2017-08-15] MEDS ORDERED: *HR* OxyCODONE Immed Rel 15 MG TABLET PO PRN (14:52)
[2017-08-15] MEDS ORDERED: 0.9 % Sodium Chloride 1,000 ML ONE (14:57)
[2017-08-15] MEDS ORDERED: *HR* OxyCODONE Immed Rel 15 MG TABLET PO SCH (15:00)
[2017-08-15] MEDS: 0.9 % Sodium Chloride 1,000 ML IVC SCH (15:08)
--- NOTE | 2017-08-15 15:21 | Neurology - Consult Note ---
Date of Encounter: 08/15/17 Time of Encounter: 15:19 Assessment and Plan (1) Altered mental status Current Visit: Yes Status: Acute This patient who has an history of previous a stroke admitted with some mild mental status changes seems to be doing better on examination at the moment I did not see any new lateralizing sign of the stroke on examination at the same time CT scan of the head was been negative for any acute bleed or large infarct. At this time I would suggest that she check for any underlying metabolic and infectious etiologies in particularly for any UTI as might be the reason for her mental status changes. On the other hand I did not see any history sign or anything to be suggestive of seizure. Qualifiers: Altered mental status type: unspecified Qualified Code(s): R41.82 - Altered mental status, unspecified (2) History of CVA with residual deficit Current Visit: Yes Status: Acute Patient has a history of previous stroke with mild right-sided residual weakness without any worsening of the symptoms now at the moment she seems to be stable currently she is on an aspirin I suggest a stroke workup including MRI of the brain shows any acute infarct in that case she may need to be on a different antiplatelet agent like Plavix but at the moment I suggest we should continue her on an aspirin. She would benefit from physical therapy evaluation. At the same time suggest check for underlying metabolic or infectious etiology for her condition. Stroke workup if MRI is positive . History of Present Illness HPI: Ms. Stoddard is a 77 year old female with PMH of arthritis, cervical cancer in 1968 and ovarian cancer in 1996, CAD, diabetes controlled with oral anti- hyperglycemic medications and insulin, HLD, HTN, and osteoporosis presents from the ED with chief complaint of stroke-like symptoms that began this morning. Pts. daughter reports at 7 p.m. last night the pt. was acting normal and this morning she has soem confusion, Pt. reports not remembering going to bed or events that occurred this morning. Pt has residual right-sided weakness from previous stroke 4-5 years ago. Pt. denies recent illness, fever, chills, nausea , vomiting, changes in vision, headache, chest pain, shortness of breath, chest congestion, abdominal pain, diarrhea, constipation, dizziness, lightheadedness, numbness. she did has some mild headaches but not as bad Past Med Surg Social Fam HX - Past Medical History Medical history: arthritis, cancer (Cervical in 1968 and Ovarian in 1996), coronary artery disease, diabetes, hyperlipidemia, hypertension, osteoporosis, other Additional medical history: Chronic Back Pain DDD and stenosis. Anxiety. Depression. Vit D deficiency. DM2. DLD. DVT. Scoliosis. HLD. Diverticulosis. CP. UTI. Hypomagnemia. SOB. LHC small Ramus 80% stenosis Psychiatric history: depression - Past Surgical History Surgical History: appendectomy, hysterectomy (Total), knee replacement, other Additional surgical history: bilat total knee 2002. HYST 1968. Ovarian Cancer 1986. Ventral Hernia 1998. knee scope. TIA 1995. Heart cath no stents. EGD - Social History Smoking Status: Never smoker Smokeless Tobacco Status: No Alcohol use: none Drug use: none - Family History Mother Race: Family Member Ethnicity: Non- Living Status: Age at : 65 Cause of : Female cancer Hx Family Cardiac Disorders: No Hx Family Respiratory Disorders: No Hx Family Cancer: Yes (Breast, Female) Hx Family GI Disorders: No Hx Family Endocrine Disorder: No Hx Family Neuromuscular Disorders: No Hx Family Neurologic Disorders: No Hx Family HEENT Disorders: No Hx Family Autoimmune Disorders: No Father History Unknown: Yes Race: Sister Race: Family Member Ethnicity: Non- Living Status: Age at : 49 Cause of : Breast cancer Hx Family Cancer: Yes (Breast) Grandfather Race: Family Member Ethnicity: Non- Living Status: Age at : 72 Cause of : CVA Hx Family Cardiac Disorders: Yes (CVA) Hx Family Neurologic Disorders: Yes (CVA) Medications and Allergies Amlodipine Besylate 10 mg PO DAILY 04/29/17 [History] Aspirin [Lo-Dose Aspirin EC] 81 mg PO DAILY 04/29/17 [History] Atorvastatin [Lipitor] 40 mg PO HS 04/29/17 [History] Calcium Carb, Citrate/Vit D3 [Calcium + D3 ER Tablet] 1 tab PO DAILY 04/29/17 [ History] Clopidogrel [Plavix] 75 mg PO DAILY 04/29/17 [History] Dicyclomine [Bentyl] 10 mg PO TID 04/29/17 [History] Ergocalciferol (VITAMIN D2) [Vitamin D2] 50,000 unit PO QWEEK 04/29/17 [History] Gabapentin [Neurontin] 100 mg PO DAILY 04/29/17 [History] Insulin DETEMIR [Levemir Flextouch] 68 units SQ BID 04/29/17 [History] Isosorbide MONOnitrate (24 HR) [Imdur] 60 mg PO DAILY 04/29/17 [History] Metformin HCl [Glucophage Xr] 750 mg PO DAILY 04/29/17 [History] Metoprolol Tartrate [Lopressor] 50 mg PO BID 04/29/17 [History] Mirtazapine [Remeron] 30 mg PO HS 04/29/17 [History] Oxycodone HCl 15 mg PO TID 04/29/17 [History] Potassium Chloride [K-Tab ER] 20 meq PO BID 04/29/17 [History] Sertraline [Zoloft] 150 mg PO DAILY 04/29/17 [History] Sucralfate [Carafate] 1 gm PO BID 04/29/17 [History] Timolol Maleate 0.5% 1 drop OP DAILY 04/29/17 [History] Venlafaxine HCl [Venlafaxine HCl ER] 75 mg PO BID 04/29/17 [History] 3 Allergy/AdvReac Type Severity Reaction Status Date / Time No Known Allergies Allergy Verified 04/29/17 10:37 All Systems: The remainder of the systems were reviewed and are negative Physical Examination - Vital Signs Vital Signs: Initial Vital Signs Temp Pulse Resp BP Pulse Ox 98.2 F 61 18 160/84 95 08/15/17 10:19 08/15/17 10:19 08/15/17 10:19 08/15/17 10:19 08/15/17 10:19 - Exam Exam: GENERAL: Comfortable in no acute distress HEENT: Normal LUNGS: CTA HEART: RRR, S1 S2 Audible, no murmur EXTREMITIES: No Pedal edema. DETAILED NEUROLOGICAL EXAMINATION: MENTAL STATUS: Oriented to person, place, date and situation. Memory: knows the President, Aware of recent events Recent Memory Intact Cranial Nerve Examination: CN - II: Visual Acuity, Field of Vision Normal, Fundus examination: No disk edema, Pupils- size shape reaction to light and accommodation: All normal. CN III, IV, : External ocular movements were intact, Pupils were reactive, Nodrooping of the eyelids CN V: Sensation over the face to light touch and pinprick all normal. Corneal reflexes not tested, jaw jerk normal. CN VII: No facial asymmetry, no flattening of nasolabial folds, no difficulty in closing the eyes, no loss of forehead wrinkles, no difficulty in eye-closure, frowning raising eyebrows. CNVIII: No significant hearing loss CN IX, X: Uvula centralized not deviated, Gag reflex: Not tested CN X1: Sternocleidomastoid, trapezius, normal or evidence of any weakness. CN X11: No Dysarthria, no wasting or fibrilation f tongue muscles, no deviation, tongue muscle strength normal. Motor examination: No hypertrophy, tone was normal, power grade 0-5 Upper limbs Proximal- No difficulty in lifting the arms above the head. She did have a mild 4/4 right sided weakness Lower limbs On formal testing 3+/3+ on the right side as compared to the left which is normal Coordination: [id number] normal. Target pursuit normal finger tapping normal, Rapid alternating moment of wrist normal Sensory system: Superficial sensations- Touch normal. Pain- Pinprick, Temperature all normal, Deep sensation normal, Joint position sense normal. Cortical sensation, Tactile discrimination, localization and extinction all normal. Deep tendon reflexes. Symmetrical bilateral, No evidence of Babinski. No sign of meningeal irritation Gait Examination: Deferred Results - Laboratory Findings CBC and BMP: 08/15/17 10:47 08/15/17 10:47 Abnormal lab findings: Abnormal lab results Hgb 9.9 g/dL (11.5-15.4) L 08/15/17 10:47 Hct 31.6 % (35.3-44.9) L 08/15/17 10:47 MCV 80.8 fL (83.0-100.0) L 08/15/17 10:47 MCH 25.3 pg (28.0-33.3) L 08/15/17 10:47 MCHC 31.3 g/dL (31.6-35.5) L 08/15/17 10:47 RDW 16.3 % (11.5-14.5) H 08/15/17 10:47 MPV 9.0 fL (9.4-12.4) L 08/15/17 10:47 Sodium 133 mEq/L (136-145) L 08/15/17 10:47 Glucose 161 mg/dL (70-105) H 08/15/17 10:47 POC Glucose 172 mg/dL (70-99) H 08/15/17 10:32 Total Bilirubin 0.2 mg/dL (0.3-1.0) L 08/15/17 10:47 Ur Leukocyte Esterase Trace (Negative) H 08/15/17 11:51 Urine Microscopic RBC 3-5 per hpf (0-3) H 08/15/17 11:51 Ur Squamous Epith Cells Many per lpf (None-Few) H 08/15/17 11:51 Ur Culture Indicated? NO. (NO) A 08/15/17 11:51 - Diagnostic Findings Additional findings: CT of the head was negative Consult Discharge Plan - Plan Referrals: Luisito Mccormick MD [Primary Care Provider] -
[2017-08-15] MEDS: Insulin LISPRO 300 UNITS/3 ML VIAL SQ SCH ×2 (17:18→21:45)
[2017-08-15] MEDS: Sucralfate 1 GM TABLET PO SCH (17:20)
[2017-08-15] MEDS: Mirtazapine 15 MG TABLET PO SCH (21:58)
[2017-08-15] MEDS: *HR* Heparin 5,000 UNIT/ML VIAL SQ SCH (21:59)
[2017-08-15] MEDS: Venlafaxine XR (24 HR) 75 MG CAP.ER.24H PO SCH (21:59)
[2017-08-15] MEDS: Insulin DETEMIR 100 UNIT/ML X5UNITS SQ SCH (22:22)
[2017-08-16] MEDS: *HR* Heparin 5,000 UNIT/ML VIAL SQ SCH ×3 (04:52→20:09)
[2017-08-16] MEDS: 0.9 % Sodium Chloride 1,000 ML IVC SCH ×2 (04:53→18:09)
--- NOTE | 2017-08-16 08:50 | Internal Med Progress Note ---
Date of Encounter: 08/16/17 Time of Encounter: 08:50 - Assessment and plan (1) Altered mental status Current Visit: Yes Status: Acute Assessment and plan: Pt appears to be back at her baseline. UA neg for UTI. Non contrast CTH and MRI brain negative. Will check TSH, vitamin B12 and folate levels. Qualifiers: Altered mental status type: unspecified Qualified Code(s): R41.82 - Altered mental status, unspecified (2) History of CVA with residual deficit Current Visit: Yes Status: Acute Assessment and plan: Non-contrast CTH and MRI neg. Seen by neurology and states ok to DC from their standpoint. Resume home medication. (3) CAD (coronary artery disease) Current Visit: Yes Status: Chronic Assessment and plan: Continue on ASA and statin. Qualifiers: Coronary Disease-Associated Artery/Lesion type: [place] artery [place] vs. 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 Diabetes mellitus complication status : with unspecified complications Qualified Code(s): E11.8 - Type 2 diabetes mellitus with unspecified complications (6) HLD (hyperlipidemia) Current Visit: Yes Status: Chronic Assessment and plan: Lipitor Qualifiers: Hyperlipidemia type: pure hypercholesterolemia Qualified Code(s): E78.00 - Pure hypercholesterolemia, unspecified; E78.0 - Pure hypercholesterolemia (7) HTN (hypertension) Current Visit: Yes Status: Chronic Assessment and plan: Norvasc Qualifiers: Hypertension type: essential hypertension Qualified Code(s): I10 - Essential (primary) hypertension (8) Falls frequently Current Visit: Yes Status: Acute Assessment and plan: Pt reported frequent falls at home. There fore awaiting PT/OT eval in am prior to D/C. Possible D/C following evaluation. - Time Spent With Patient Total time spent is greater than 50% in coordination of care (as documented) at patient's floor/unit and/or counseling patient: less than 15 minutes - Subjective Interval history: Pt denies issues with swallowing, walking, or any visual disturbance. Denies fever, chills, N/V, constipation, or diarrhea. - Constitutional Vitals: Temp Pulse Resp BP Pulse Ox 98.7 F 69 16 165/73 96 08/16/17 07:00 08/16/17 07:00 08/16/17 07:00 08/16/17 07:00 08/16/17 07:00 General appearance: Present: cooperative, A&O X 3, pleasant, no acute distress, obese, answers questions appropriately - Head Head exam: Present: atraumatic, normocephalic - Eye Eye exam: Present: PERRL, conjuntiva pink, sclera anicteric Pupils: Present: PERRL - Neck Neck exam general surgery: Present: supple, trachea midline. Absent: lymphadenopathy - Respiratory Respiratory exam: Present: CTAB. Absent: accessory muscle use, rales, rhonchi, wheezes - Cardiovascular Cardiovascular exam: Present: RRR, +S1, +S2. Absent: diastolic murmur, gallop, rubs, systolic murmur - GI/Abdominal GI/Abdominal exam: Present: normal bowel sounds, soft, no peritoneal signs. Absent: distended, tenderness - Extremities Exam Extremities exam: Present: warm, radial pulses palpable and symmetrical. Absent : calf tenderness, cyanotic, pedal edema - Neurological Exam Neurological exam: Present: CN II-XII intact, oriented X3, no focal deficits. Absent: pronater drift, facial droop, speech deficit - Skin Skin exam: Present: dry, intact Internal Medicine: Result - Labs CBC & Chem 7: 08/16/17 09:24 08/16/17 09:24 - ABG Interpretation ABG results: PT/INR, D-dimer PT 11.0 Seconds (9.4-12.1) 08/15/17 10:47 - Impressions Impressions Brain MRI 08/15/17 12:58 IMPRESSION: Multifocal small-vessel ischemic change bilaterally with multiple small old lacunar infarcts No acute infarct, mass or acute hemorrhage. D/ / Maciej Fraga / Maciej Fraga Interpreting Provider: Maciej Fraag Consult Discharge Plan - Plan Referrals: Luisito Mccormick MD [Primary Care Provider] -
[2017-08-16] MEDS: Aspirin Enteric Coated 81 MG Tablet PO SCH (09:03)
[2017-08-16] MEDS: amLODIPine 5 MG TABLET PO SCH (09:03)
[2017-08-16] MEDS: Venlafaxine XR (24 HR) 75 MG CAP.ER.24H PO SCH ×2 (09:03→20:09)
[2017-08-16] MEDS: Sucralfate 1 GM TABLET PO SCH ×2 (09:03→16:40)
[2017-08-16] MEDS: Isosorbide MONOnitrate (24 HR) 60 MG TAB.ER.24H PO SCH (09:04)
[2017-08-16] MEDS: Insulin DETEMIR 100 UNIT/ML X5UNITS SQ SCH ×2 (09:04→22:23)
[2017-08-16] MEDS: Gabapentin 100 MG CAPSULE PO SCH (09:04)
[2017-08-16] MEDS: Insulin LISPRO 300 UNITS/3 ML VIAL SQ SCH ×4 (09:13→22:22)
[2017-08-16 09:55] LABS: Basophils % 0.5 %; Eosinophils # 0.2 K/mcL (0.0-0.6); Eosinophils % 2.3 %; Hematocrit 33.9 % (35.3-44.9); Hemoglobin 10.4 g/dL (11.5-15.4); Immature Granulocytes % 0.3 % (0-4); Lymphocytes # 1.6 K/mcL (0.6-4.6); Lymphocytes % 21.3 %; Mean Corpuscular HGB Conc 30.7 g/dL (31.6-35.5); Mean Corpuscular Hemoglobin 24.6 pg (28.0-33.3); Mean Corpuscular Volume 80.1 fL (83.0-100.0); Monocytes # 0.5 K/mcL (0.0-1.3); Monocytes % 6.5 %; Neutrophils # 5.3 K/mcL (1.6-8.9); Platelet Count 350 K/mcL (140-400); Red Blood Count 4.23 M/mcL (3.82-4.97); Red Cell Distribution Width 16.5 % (11.5-14.5); Segmented Neutrophils % 69.1 %
[2017-08-16 10:05] LABS: Alanine Aminotransferase 11 Units/L (7-52); Albumin 3.9 g/dL (3.5-5.7); Albumin/Globulin Ratio 1.3 (1.1-2.2); Alkaline Phosphatase 81 Units/L (34-104); Aspartate Amino Transferase 19 Units/L (13-39); BUN/Creatinine Ratio 17 (6-26); Bilirubin,Total 0.2 mg/dL (0.3-1.0); Blood Urea Nitrogen 11 mg/dL (8-23); Calcium 8.8 mg/dL (8.6-10.3); Carbon Dioxide 26 mEq/L (23-29); Chloride 105 mEq/L (98-107); Chol/HDL Ratio 3.8 (0-4.9); Cholesterol 129 mg/dL (< 200); Glucose 122 mg/dL (70-105); HDL Cholesterol 34 mg/dL (40-59); LDL Cholesterol,Calculated 44 mg/dL (0-99); Magnesium 1.5 mg/dL (1.6-2.6); Osmolality,Calculated 287 (280-300); Sodium 138 mEq/L (136-145); Total Protein 6.9 g/dL (6.4-8.9); Triglycerides 254 mg/dL (< 150); eGFR For African Americans > 60 (> 60); eGFR For Non-African Americans > 60 (> 60)
[2017-08-16] MEDS: Cholecalciferol (D-3) 1,000 UNIT TABLET PO SCH (11:34)
[2017-08-16 11:42] LABS: Estimated Average Glucose 171 mg/dl; Hemoglobin A1C 7.6 %
--- NOTE | 2017-08-16 13:14 | Neurology Progress Note ---
Date of Encounter: 08/16/17 Time of Encounter: 09:50 Assessment and Plan (1) Altered mental status Current Visit: Yes Status: Acute This patient who has an history of previous a stroke admitted with some mild mental status changes seems to be doing better on examination at the moment I did not see any new lateralizing sign of the stroke on examination at the same time CT scan of the head was been negative for any acute bleed or large infarct. At this time I would suggest that she check for any underlying metabolic and infectious etiologies in particularly for any UTI as might be the reason for her mental status changes. On the other hand I did not see any history sign or anything to be suggestive of seizure. MRI of the brain is negative she seemed to be back to her baseline from neurology standpoint patient is a stable okay to discharge other treatment is as per primary team Qualifiers: Altered mental status type: unspecified Qualified Code(s): R41.82 - Altered mental status, unspecified (2) History of CVA with residual deficit Current Visit: Yes Status: Acute Subjective Interval history: Clinically patient is stable denies any other new symptoms other new problems speech is better no focal motor weakness headaches is also improved Objective - Constitutional Vitals: Temp Pulse Resp BP Pulse Ox 98.6 F 62 16 141/57 96 08/16/17 11:02 08/16/17 11:02 08/16/17 11:02 08/16/17 11:02 08/16/17 11:02 - Neurological Exam Motor Examination: Present: grossly full strength in all extremities Sensation intact: Present: intact Reflex and gait examination: intact Reflexes: Biceps: 1+, Triceps: 1+, Brachioradialis: 1+, Patella: 1+, Achilles: 1 + Mental Status Examination: Present: awake, alert, oriented to person, oriented to place, oriented to time, follows commands appropriately Cranial nerve examination: Present: PERRL, EOMI, visual eastman intact Results - Laboratory Findings CBC and BMP: 08/16/17 09:24 08/16/17 09:24 Abnormal lab findings: Abnormal lab results Hgb 10.4 g/dL (11.5-15.4) L 08/16/17 09:24 Hct 33.9 % (35.3-44.9) L 08/16/17 09:24 MCV 80.1 fL (83.0-100.0) L 08/16/17 09:24 MCH 24.6 pg (28.0-33.3) L 08/16/17 09:24 MCHC 30.7 g/dL (31.6-35.5) L 08/16/17 09:24 RDW 16.5 % (11.5-14.5) H 08/16/17 09:24 MPV 9.0 fL (9.4-12.4) L 08/16/17 09:24 Glucose 122 mg/dL (70-105) H 08/16/17 09:24 POC Glucose 195 mg/dL (70-99) H 08/15/17 19:54 Hemoglobin A1c 7.6 % (-5.6) H 08/16/17 09:24 Magnesium 1.5 mg/dL (1.6-2.6) L 08/16/17 09:24 Total Bilirubin 0.2 mg/dL (0.3-1.0) L 08/16/17 09:24 Triglycerides 254 mg/dL (< 150) H 08/16/17 09:24 VLDL Cholesterol, Calc 51 mg/dL (< 31) H 08/16/17 09:24 HDL Cholesterol 34 mg/dL (40-59) L 08/16/17 09:24 Ur Leukocyte Esterase Trace (Negative) H 08/15/17 11:51 Urine Microscopic RBC 3-5 per hpf (0-3) H 08/15/17 11:51 Ur Squamous Epith Cells Many per lpf (None-Few) H 08/15/17 11:51 Ur Culture Indicated? NO. (NO) A 08/15/17 11:51 - Diagnostic Findings Additional findings: MRI of the brain is negative for any acute infarct Consult Discharge Plan - Plan Referrals: Luisito Mccormick MD [Primary Care Provider] -
--- NOTE | 2017-08-16 16:58 | Discharge Summary ---
- NOTES TO OUTPATIENT PROVIDER Notes to Outpatient Provider: PCP out pt Orders not resulted at time of discharge: Pending orders 08/15/17 15:48 Vitamin D 1,25 Dihydroxy Routine 08/17/17 04:00 Complete Blood Count [HEME] AM 0400 Comprehensive Metabolic Panel AM 0400 08/18/17 04:00 Complete Blood Count [HEME] AM 0400 Comprehensive Metabolic Panel AM 0400 Date of Encounter: 08/16/17 Time of Encounter: 08:50 - Discharge Diagnosis (1) Altered mental status Status: Acute Qualifiers: Altered mental status type: unspecified Qualified Code(s): R41.82 - Altered mental status, unspecified (2) History of CVA with residual deficit Status: Acute (3) TIA (transient ischemic attack) Status: Acute (4) CAD (coronary artery disease) Status: Chronic Qualifiers: Coronary Disease-Associated Artery/Lesion type: [place] artery [place] vs. transplanted heart: [place] heart Associated angina: angina presence unspecified Qualified Code(s): I25.10 - Atherosclerotic heart disease of [place] coronary artery without angina pectoris (5) HLD (hyperlipidemia) Status: Chronic Qualifiers: Hyperlipidemia type: pure hypercholesterolemia Qualified Code(s): E78.00 - Pure hypercholesterolemia, unspecified; E78.0 - Pure hypercholesterolemia (6) HTN (hypertension) Status: Chronic Qualifiers: Hypertension type: essential hypertension Qualified Code(s): I10 - Essential (primary) hypertension Hospital course: Ms. Stoddard is a 77 year old female - Time Spent with Patient Total time spent providing and/or coordinating discharge services: - Discharge Medications Home Medications: Amlodipine Besylate 10 mg PO DAILY 04/29/17 [History] Aspirin [Lo-Dose Aspirin EC] 81 mg PO DAILY 04/29/17 [History] Atorvastatin [Lipitor] 40 mg PO HS 04/29/17 [History] Calcium Carb, Citrate/Vit D3 [Calcium + D3 ER Tablet] 1 tab PO DAILY 04/29/17 [ History] Clopidogrel [Plavix] 75 mg PO DAILY 04/29/17 [History] Dicyclomine [Bentyl] 10 mg PO TID 04/29/17 [History] Ergocalciferol (VITAMIN D2) [Vitamin D2] 50,000 unit PO QWEEK 04/29/17 [History] Gabapentin [Neurontin] 100 mg PO DAILY 04/29/17 [History] Insulin DETEMIR [Levemir Flextouch] 68 units SQ BID 04/29/17 [History] Isosorbide MONOnitrate (24 HR) [Imdur] 60 mg PO DAILY 04/29/17 [History] Metformin HCl [Glucophage Xr] 750 mg PO DAILY 04/29/17 [History] Metoprolol Tartrate [Lopressor] 50 mg PO BID 04/29/17 [History] Mirtazapine [Remeron] 30 mg PO HS 04/29/17 [History] Oxycodone HCl 15 mg PO TID 04/29/17 [History] Potassium Chloride [K-Tab ER] 20 meq PO BID 04/29/17 [History] Sertraline [Zoloft] 150 mg PO DAILY 04/29/17 [History] Sucralfate [Carafate] 1 gm PO BID 04/29/17 [History] Timolol Maleate 0.5% 1 drop OP DAILY 04/29/17 [History] Venlafaxine HCl [Venlafaxine HCl ER] 75 mg PO BID 04/29/17 [History] Allergies/Adverse Reactions: 3 Allergy/AdvReac Type Severity Reaction Status Date / Time No Known Allergies Allergy Verified 04/29/17 10:37 Date of admission: 08/15/17 12:31 Primary care physician: Luisito Mccormick MD Consults: 08/15/17 13:07 Consult to Occupational Therapy [CONS] Routine Comment: Evaluate, develop and implement POC Reason for Consult: Patient has hx of previous CVA 4-5 years ago w/residual right- sided weakness which she states makes her unsteady. Please assess patient for ambulation strength , stability, safety, and possible home assistive/ rehabilitation needs for post-discharge planning. Does patient have active BEDREST order?: No Is patient medically & hemodynamically stable?: Yes Patient assessed for mobility or mobilized this visit?: No Consult to Unit Supervisor [CONS] Routine Reason for SW Consult: Please assess patient for possible home needs for post -discharge planning. 08/15/17 13:08 Consult to Physical Therapy [CONS] Routine Comment: Evaluate, develop and implement POC Reason for Consult: Patient has hx of previous CVA 4-5 years ago w/residual right- sided weakness which she states makes her unsteady. Please assess patient for ambulation strength , stability, safety, and possible home assistive/ rehabilitation needs for post-discharge planning. Does patient have active BEDREST order?: No Is patient medically & hemodynamically stable?: Yes Patient assessed for mobility or mobilized this visit?: No 08/15/17 13:11 Consult to Neurology [CONS] Routine Consulting Provider: [facility] Reason for Consult: Patient has previous hx of CVA approx 4-5 years w/ residual rt-sided weakness in UE and LE. Pt. confused this morning and cannot recall going to bed last night or events this morning. UA not indicative of UTI. No facial droop/ pronator drift. CT unremarkable. MRI of head/brain pending. Call Completed: Yes 08/15/17 14:45 Consult to Nutrition [CONS] Routine Comment: Consulting Provider: NUTRITION Reason for Dietary Consult: MST Score - Constitutional Vitals: Temp Pulse Resp BP Pulse Ox 98.2 F 71 17 154/69 96 08/16/17 16:34 08/16/17 16:34 08/16/17 16:34 08/16/17 16:34 08/16/17 16:34 General appearance: Present: cooperative, A&O X 3, pleasant, no acute distress, obese, answers questions appropriately - Patient Status Condition: Fair - Discharge Instructions Follow Up With: Luisito Mccormick MD [Primary Care Provider] -
[2017-08-16 19:45] LABS: Folate 7.7 ng/mL (3.0-16.0)
[2017-08-16] MEDS: Mirtazapine 15 MG TABLET PO SCH (20:09)
[2017-08-17] MEDS: *HR* Heparin 5,000 UNIT/ML VIAL SQ SCH (04:30)
[2017-08-17 05:48] LABS: Basophils % 0.4 %; Eosinophils # 0.2 K/mcL (0.0-0.6); Eosinophils % 1.9 %; Hematocrit 30.9 % (35.3-44.9); Hemoglobin 9.5 g/dL (11.5-15.4); Immature Granulocytes % 0.4 % (0-4); Lymphocytes # 1.7 K/mcL (0.6-4.6); Lymphocytes % 16.6 %; Mean Corpuscular HGB Conc 30.7 g/dL (31.6-35.5); Mean Corpuscular Hemoglobin 24.2 pg (28.0-33.3); Mean Corpuscular Volume 78.6 fL (83.0-100.0); Mean Platelet Volume 9.2 fL (9.4-12.4); Monocytes # 0.7 K/mcL (0.0-1.3); Monocytes % 6.4 %; Neutrophils # 7.7 K/mcL (1.6-8.9); Platelet Count 332 K/mcL (140-400); Red Blood Count 3.93 M/mcL (3.82-4.97); Red Cell Distribution Width 16.4 % (11.5-14.5); Segmented Neutrophils % 74.3 %
[2017-08-17 06:06] LABS: Alanine Aminotransferase 8 Units/L (7-52); Albumin 3.6 g/dL (3.5-5.7); Albumin/Globulin Ratio 1.2 (1.1-2.2); Alkaline Phosphatase 70 Units/L (34-104); Aspartate Amino Transferase 14 Units/L (13-39); BUN/Creatinine Ratio 20 (6-26); Bilirubin,Total 0.2 mg/dL (0.3-1.0); Blood Urea Nitrogen 11 mg/dL (8-23); Carbon Dioxide 24 mEq/L (23-29); Chloride 105 mEq/L (98-107); Globulin 2.9 g/dL (2.4-3.5); Glucose 139 mg/dL (70-105); Osmolality,Calculated 284 (280-300); Potassium 3.6 mEq/L (3.5-5.1); Sodium 136 mEq/L (136-145); Total Protein 6.5 g/dL (6.4-8.9); eGFR For African Americans > 60 (> 60); eGFR For Non-African Americans > 60 (> 60)
[2017-08-17] MEDS ORDERED: *HR* OxyCODONE Immed Rel 15 MG TABLET PO PRN (07:37)
[2017-08-17] MEDS: amLODIPine 5 MG TABLET PO SCH (08:48)
[2017-08-17] MEDS: Venlafaxine XR (24 HR) 75 MG CAP.ER.24H PO SCH (08:48)
[2017-08-17] MEDS: Sucralfate 1 GM TABLET PO SCH (08:48)
[2017-08-17] MEDS: Gabapentin 100 MG CAPSULE PO SCH (08:48)
[2017-08-17] MEDS: Isosorbide MONOnitrate (24 HR) 60 MG TAB.ER.24H PO SCH (08:48)
[2017-08-17] MEDS: Aspirin Enteric Coated 81 MG Tablet PO SCH (08:48)
[2017-08-17] MEDS: Cholecalciferol (D-3) 1,000 UNIT TABLET PO SCH (08:48)
[2017-08-17] MEDS: Insulin DETEMIR 100 UNIT/ML X5UNITS SQ SCH (08:49)
[2017-08-17] MEDS: Insulin LISPRO 300 UNITS/3 ML VIAL SQ SCH ×2 (09:07→12:32)
--- NOTE | 2017-08-17 12:39 | Discharge Summary ---
- NOTES TO OUTPATIENT PROVIDER Notes to Outpatient Provider: PCP in 5 tjo 7 days Orders not resulted at time of discharge: Pending orders 08/15/17 15:48 Vitamin D 1,25 Dihydroxy Routine 08/18/17 04:00 Complete Blood Count [HEME] AM 0400 Comprehensive Metabolic Panel AM 0400 Date of Encounter: 08/17/17 Time of Encounter: 12:36 - Discharge Diagnosis (1) Altered mental status Priority: Primary Status: Acute Assessment and Plan: Pt appears to be back at her baseline. UA neg for UTI. Non contrast CTH and MRI brain negative. Will check TSH, vitamin B12 and folate levels. Qualifiers: Altered mental status type: unspecified Qualified Code(s): R41.82 - Altered mental status, unspecified (2) History of CVA with residual deficit Priority: Secondary Status: Acute Assessment and Plan: Non-contrast CTH neg. Seen by neurology and states ok to DC from their standpoint. Resume home medication. Evaluated by PT/OT and no needs at this time. MRI IMPRESSION: Multifocal small-vessel ischemic change bilaterally with multiple small old lacunar infarcts. No acute infarct, mass or acute hemorrhage. (3) CAD (coronary artery disease) Priority: Secondary Status: Chronic Qualifiers: Coronary Disease-Associated Artery/Lesion type: [place] artery [place] vs. transplanted heart: [place] heart Associated angina: angina presence unspecified Qualified Code(s): I25.10 - Atherosclerotic heart disease of [place] coronary artery without angina pectoris (4) Depression Priority: Secondary Status: Chronic Assessment and Plan: Effexor Qualifiers: Depression Type: unspecified Qualified Code(s): F32.9 - Major depressive disorder, single episode, unspecified (5) Diabetes mellitus Priority: Secondary Status: Chronic Assessment and Plan: Resume home medication. Qualifiers: Diabetes mellitus type: type 2 Diabetes mellitus shelter insulin use: unspecified shelter insulin use status Diabetes mellitus complication status : with unspecified complications Qualified Code(s): E11.8 - Type 2 diabetes mellitus with unspecified complications (6) HLD (hyperlipidemia) Priority: Secondary Status: Chronic Assessment and Plan: Lipitor Qualifiers: Hyperlipidemia type: pure hypercholesterolemia Qualified Code(s): E78.00 - Pure hypercholesterolemia, unspecified; E78.0 - Pure hypercholesterolemia (7) HTN (hypertension) Priority: Secondary Status: Chronic Assessment and Plan: Norvasc Qualifiers: Hypertension type: essential hypertension Qualified Code(s): I10 - Essential (primary) hypertension (8) Falls frequently Priority: Secondary Status: Acute Assessment and Plan: Pt had reported falling at home. Pt evaluated by PT/OT and no needs at this time. EKG did not show evidence of arrhythmia. Echo with EF 55% and read as normal. Follow up out pt with PCP. Hospital course: Ms. Stoddard is a 77 year old female Discharge discussed with: patient - Time Spent with Patient Total time spent providing and/or coordinating discharge services: Greater than 30 minutes - Discharge Medications Home Medications: Amlodipine Besylate 10 mg PO DAILY 04/29/17 [History] Aspirin [Lo-Dose Aspirin EC] 81 mg PO DAILY 04/29/17 [History] Atorvastatin [Lipitor] 40 mg PO HS 04/29/17 [History] Calcium Carb, Citrate/Vit D3 [Calcium + D3 ER Tablet] 1 tab PO DAILY 04/29/17 [ History] Clopidogrel [Plavix] 75 mg PO DAILY 04/29/17 [History] Dicyclomine [Bentyl] 10 mg PO TID 04/29/17 [History] Ergocalciferol (VITAMIN D2) [Vitamin D2] 50,000 unit PO QWEEK 04/29/17 [History] Gabapentin [Neurontin] 100 mg PO DAILY 04/29/17 [History] Insulin DETEMIR [Levemir Flextouch] 68 units SQ BID 04/29/17 [History] Isosorbide MONOnitrate (24 HR) [Imdur] 60 mg PO DAILY 04/29/17 [History] Metformin HCl [Glucophage Xr] 750 mg PO DAILY 04/29/17 [History] Metoprolol Tartrate [Lopressor] 50 mg PO BID 04/29/17 [History] Mirtazapine [Remeron] 30 mg PO HS 04/29/17 [History] Oxycodone HCl 15 mg PO TID 04/29/17 [History] Potassium Chloride [K-Tab ER] 20 meq PO BID 04/29/17 [History] Sertraline [Zoloft] 150 mg PO DAILY 04/29/17 [History] Sucralfate [Carafate] 1 gm PO BID 04/29/17 [History] Timolol Maleate 0.5% 1 drop OP DAILY 04/29/17 [History] Venlafaxine HCl [Venlafaxine HCl ER] 75 mg PO BID 04/29/17 [History] Allergies/Adverse Reactions: 3 Allergy/AdvReac Type Severity Reaction Status Date / Time No Known Allergies Allergy Verified 04/29/17 10:37 Date of admission: 08/15/17 12:31 Primary care physician: Luisito Mccormick MD Consults: 08/15/17 13:07 Consult to Occupational Therapy [CONS] Routine Comment: Evaluate, develop and implement POC Reason for Consult: Patient has hx of previous CVA 4-5 years ago w/residual right- sided weakness which she states makes her unsteady. Please assess patient for ambulation strength , stability, safety, and possible home assistive/ rehabilitation needs for post-discharge planning. Does patient have active BEDREST order?: No Is patient medically & hemodynamically stable?: Yes Patient assessed for mobility or mobilized this visit?: No Consult to Agricultural Aircraft Pilot [CONS] Routine Reason for SW Consult: Please assess patient for possible home needs for post -discharge planning. 08/15/17 13:11 Consult to Neurology [CONS] Routine Consulting Provider: [facility] Reason for Consult: Patient has previous hx of CVA approx 4-5 years w/ residual rt-sided weakness in UE and LE. Pt. confused this morning and cannot recall going to bed last night or events this morning. UA not indicative of UTI. No facial droop/ pronator drift. CT unremarkable. MRI of head/brain pending. Call Completed: Yes 08/15/17 14:45 Consult to Nutrition [CONS] Routine Comment: Consulting Provider: NUTRITION Reason for Dietary Consult: MST Score - Constitutional Vitals: Temp Pulse Resp BP Pulse Ox 99.4 F 64 16 167/66 93 08/17/17 11:00 08/17/17 11:00 08/17/17 11:00 08/17/17 11:00 08/17/17 11:00 General appearance: Present: cooperative, A&O X 3, pleasant, no acute distress, obese, answers questions appropriately - Head Head exam: Present: atraumatic, normocephalic - Eye Eye exam: Present: PERRL, conjuntiva pink, sclera anicteric Pupils: Present: PERRL - Neck Neck exam general surgery: Present: supple, trachea midline. Absent: lymphadenopathy - Respiratory Respiratory exam: Present: CTAB. Absent: accessory muscle use, rales, rhonchi, wheezes - Cardiovascular Cardiovascular exam: Present: RRR, +S1, +S2. Absent: diastolic murmur, gallop, rubs, systolic murmur - GI/Abdominal GI/Abdominal exam: Present: normal bowel sounds, soft, no peritoneal signs. Absent: distended, tenderness - Extremities Exam Extremities exam: Present: warm, radial pulses palpable and symmetrical. Absent : calf tenderness, cyanotic, pedal edema - Neurological Exam Neurological exam: Present: CN II-XII intact, oriented X3, no focal deficits. Absent: pronater drift, facial droop, speech deficit - Skin Skin exam: Present: dry, intact - Patient Status Disposition: Home, Self-Care Condition: Good Overall status at discharge: patient is back to baseline - Discharge Instructions Instructions: Transient Ischemic Attack (DC), Altered Mental Status (GEN), Anemia (GEN) Follow Up With: Luisito Mccormick MD [Primary Care Provider] - - Diet and Activity Activity: increase activity as tolerated Diet: advance to your usual diet
--- NOTE | 2017-08-17 15:42 | Electrocardiograph Report ---
[place] [id number] Test Date: 2017-08-15 Pat Name: Marleni Stoddard Department: 104 Room: 2A23 Gender: F Rouge Sifter: [facility] : 1940 Requested By: Praneeth Landon Order Number: [id number] Reading MD: Baltazar Mcdonald Measurements Intervals [place] Rate: 58 P: 40 TX: 190 QRS: -22 QRSD: 153 T: 125 QT: 491 QTc: 488 Interpretive Statements SINUS BRADYCARDIA LEFT BUNDLE BRANCH BLOCK BASELINE ARTIFACT Electronically Signed On 08-17-2017 15:40:08 EDT by Baltazar Mcdonald
[2017-08-17 15:54] VITALS: BP 148/65
== END 2017-08-17 16:15 | disposition home or self-care (01) ==
LOC: EMEROO 10:17 → 2ANU 10:17
PROVIDERS: ADMIT Student in an Organized Health Care Education/Training Program; ATTEND Student in an Organized Health Care Education/Training Program

== ENCOUNTER 2017-12-17 02:00 | Inpatient (IN) ==
[2017-12-17] MEDS ORDERED: Ipratropium/Albuterol Neb 3 ML IH ONE ×2 (02:08→02:42)
[2017-12-17] MEDS ORDERED: methylPREDNISolone 125 MG/2 ML VIAL IVP ONE (02:08)
[2017-12-17] MEDS ORDERED: *HR* LORazepam 2 MG/ML VIAL IVP ONE (02:10)
--- NOTE | 2017-12-17 02:14 | Emergency Department Note ---
Disposition Clinical Impression: Hypoxia, Acute bronchospasm Acute bronchitis Qualifiers: Bronchitis organism: unspecified organism Qualified Code(s): J20.9 - Acute bro nchitis, unspecified Disposition: Admitted As Inpatient Condition: Good Referrals: Luisito Mccormick MD [Primary Care Provider] - Time of Disposition: 03:34 SOB HPI - General Stated Complaint: SoB Time Seen by Provider: 12/17/17 02:07 Source: patient, EMS Mode of arrival: EMS Limitations: no limitations Nursing Notes Reviewed: Yes Vital Signs Reviewed: Yes - History of Present Illness 77-year-old female history of CAD, hypertension presents emergency department via EMS for difficulty in breathing. States the 5 days ago she began developing a nonproductive cough difficulty breathing gradually worsening tonight. She saw her primary care provider approximately 2 days ago for the symptoms and was prescribed azithromycin. She reports only taking a total of 2 doses. She was given a breathing treatment by EMS and reports no improvement. She denies any history of lung disease or COPD. She reports smoking 40 years ago does not currently use any. She denies any fever congestion or chest pain. Denies history of heart failure. No recent hospitalization, long-distance travel or hormone use. When I ask if she has a blood clot she points to her head. When the patient arrived she was 84% on room air with prolonged expiratory phase and accessory muscle use. Pt Subjective Complaint: shortness of breath, cough - Related Data Home Medications Medication Instructions Recorded Confirmed RX: Amlodipine Besylate 10 mg PO DAILY 04/29/17 11/13/17 RX: Aspirin [Lo-Dose Aspirin EC] 81 mg PO DAILY 04/29/17 11/13/17 RX: Atorvastatin [Lipitor] 40 mg PO HS 04/29/17 11/13/17 RX: Calcium Carb, Citrate/Vit D3 1 tab PO DAILY 04/29/17 11/13/17 [Calcium + D3 ER Tablet] RX: Clopidogrel [Plavix] 75 mg PO DAILY 04/29/17 11/13/17 RX: Dicyclomine [Bentyl] 10 mg PO TID 04/29/17 11/13/17 RX: Ergocalciferol (VITAMIN D2) 50,000 unit PO TH 04/29/17 11/13/17 [Vitamin D2] RX: Gabapentin [Neurontin] 100 mg PO DAILY 04/29/17 11/13/17 RX: Insulin DETEMIR [Levemir 60 units SQ BID 04/29/17 11/13/17 Flextouch] RX: Isosorbide MONOnitrate (24 HR) 60 mg PO DAILY 04/29/17 11/13/17 [Imdur] RX: Metformin HCl [Glucophage Xr] 750 mg PO DAILY 04/29/17 11/13/17 RX: Metoprolol Tartrate [Lopressor] 50 mg PO BID 04/29/17 11/13/17 RX: Mirtazapine [Remeron] 30 mg PO HS 04/29/17 11/13/17 RX: Oxycodone HCl 15 mg PO TID PRN 04/29/17 11/13/17 RX: Potassium Chloride [K-Tab ER] 20 meq PO BID 04/29/17 11/13/17 RX: Sertraline [Zoloft] 150 mg PO DAILY 04/29/17 11/13/17 RX: Sucralfate [Carafate] 1 gm PO BID 04/29/17 11/13/17 RX: Timolol Maleate 0.5% 1 drop BOTH EYES DAILY 04/29/17 11/13/17 RX: Venlafaxine HCl [Venlafaxine 75 mg PO BID 04/29/17 11/13/17 HCl ER] RX: Cyanocobalamin (Vitamin B-12) 2,500 mcg PO DAILY 11/13/17 11/13/17 [Vitamin B12] RX: Triamcinolone Acetonide 15 gm TP BID PRN 11/13/17 11/13/17 Previous Rx's Medication Instructions Recorded HYDROcodone/Acet 7.5/325 mg [[place] 1 tab PO Q6H PRN 3 Days #12 tablet 11/13/17 7.5-325 mg] Allergies Allergy/AdvReac Type Severity Reaction Status Date / Time No Known Allergies Allergy Verified 11/13/17 08:02 All systems ED: reviewed and negative except as stated. Review of Systems: As Per HPI Constitutional: Denies: fever, chills ENT ED: Denies: congestion Cardiovascular: Denies: chest pain Respiratory: Reports: cough, dyspnea, wheezes. Denies: hemoptysis Gastrointestinal: Denies: abdominal pain, nausea, vomiting Genitourinary: Denies: dysuria Musculoskeletal: Denies: back pain Integumentary: Denies: rash, abrasion Neurological: Denies: headache Past Medical History - Past Medical History Attestation: Yes The following information was validated with the patient. 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 Absent: scleral icterus - ENT ENT exam: normal exam, normal oropharynx, mucous membranes moist - Neck Neck exam: Present: normal inspection, full ROM, trachea midline - Chest Chest inspection: Present: normal inspection, symmetric chest wall rise. Absent: tenderness, rash - Respiratory Respiratory exam: Present: respiratory distress, wheezes (Bilateral), accessory muscle use, prolonged expiratory phase - Expanded Respiratory Exam Location: wheezes: Right, Left, rales: Lower - Cardiovascular Cardiovascular exam: Present: regular rate, normal rhythm, normal heart sounds - Abdominal Exam Abdominal exam: Present: soft, Non-Tender, normal bowel sounds. Absent: tenderness, distention, guarding, rebound, rigidity - Extremities Exam Extremities exam: Present: normal inspection, full ROM, normal capillary refill. Absent: tenderness, pedal edema, calf tenderness - Back Exam Back exam: Present: normal inspection, full ROM. Absent: tenderness, CVA tenderness (R), CVA tenderness (L) - Neurological Exam Neurological exam: Present: alert, oriented X3 - Psychiatric Psychiatric exam: Present: normal affect, anxious - Skin Skin exam: Present: warm, dry, intact, normal color Course Course Narrative: Patient presents in mild respiratory distress ongoing for the past 5 days worse tonight. Nonproductive cough. Recently prescribed azithromycin without relief. She presents and was hypoxic 84%. No reports of any prior lung disease. She is showing accessory muscle use with prolonged expiratory phase. On auscultation she has bilateral wheezing with rales in the bases. There is no pedal edema. At this time will treat as possible COPD exacerbation and check other etiologies with a chest x-ray basic labs lactate blood cultures and steroids with breathing treatment. She was placed on 2L nasal cannula oxygen supplementation and her oxygen saturation went up to 94%. She does report some improvement with the oxygen. If her status continues to worsen will consider BiPAP. - Reevaluation(s) Reevaluation #1: D dimer is elevated however does not meet age adjusted. Her wheezing has improved with a breathing treatments and steroids. She has a mild leukocytosis with a elevated BNP of 169. Her troponin is less than 0.03. Her labs or otherwise unremarkable. Chest x-ray showed low lung volume without any obvious consolidation. Her EKG shows left bundle branch block which appears old. On reevaluation she seems much more calm in the wheezing has improved but still present. Her oxygen saturation remains 94% with oxygen supplementation. Patient does not wear home oxygen supplementation. At this time patient will be admitted due to her hypoxia and acute bronchospasm. Will treat with azithromycin at this time Time: 03:27 - Consultations Consultation #1: Spoke with on-call hospitalist dmitriy Moyer to admit for dyspnea, hypoxia, and acute bronchitis. No further orders at this time Time: 05:24 Vital Signs Temperature 98.4 F 12/17/17 02:07 Pulse Rate 88 12/17/17 02:07 Respiratory Rate 20 12/17/17 02:07 Blood Pressure 173/92 12/17/17 02:07 O2 Sat by Pulse Oximetry 94 12/17/17 02:07 Temperature 98.4 F 12/17/17 02:07 Pulse Rate 88 12/17/17 02:07 Respiratory Rate 21 12/17/17 02:43 Blood Pressure 173/92 12/17/17 02:15 O2 Sat by Pulse Oximetry 100 12/17/17 02:43 Oxygen Delivery Oxygen Delivery Nasal Cannula Shortness of Breath/Dyspnea - MDM Narrative Medical decision making narrative: Patient was discussed with my attending physician who agrees with ED management and final disposition. They independently evaluated the patient. Please refer to their attestation to this encounter for additional information. This note was generated by [employer] voice recognition software and as a result grammatical or spelling errors may occur using this program. - Medical Records Medical records reviewed: Yes I reviewed the patient's medical records. - Lab Data Lab results reviewed: Yes I reviewed the patient's lab results. Result diagrams: 12/17/17 02:12 12/17/17 02:12 Lab Results 12/17/17 12/17/17 12/17/17 Range/Units 02:12 02:12 02:12 WBC 14.1 H (4.3-11.1) K/mcL RBC 4.81 (3.82-4.97) M/mcL Hgb 13.2 (11.5-15.4) g/dL Hct 41.8 (35.3-44.9) % MCV 86.9 (83.0-100.0) fL MCH 27.4 L (28.0-33.3) pg MCHC 31.6 (31.6-35.5) g/dL RDW 14.8 H (11.5-14.5) % Plt Count 406 H (140-400) K/mcL MPV 9.1 L (9.4-12.4) fL Immature Gran % 0.4 (0-4) % Seg Neutrophils % 62.0 % Lymphocytes % 24.6 % Monocytes % 8.2 % Eosinophils % 4.3 % Basophils % 0.5 % Neutrophils # 8.8 (1.6-8.9) K/mcL Lymphocytes # 3.5 (0.6-4.6) K/mcL Monocytes # 1.2 (0.0-1.3) K/mcL Eosinophils # 0.6 (0.0-0.6) K/mcL Basophils # 0.1 (0.0-0.2) K/mcL D-Dimer (0-500) ng/mLFEU Sodium 134 L (136-145) mEq/L Potassium 3.8 (3.5-5.1) mEq/L Chloride 98 (98-107) mEq/L Carbon Dioxide 27 (23-29) mEq/L BUN 15 (8-23) mg/dL Creatinine 0.69 (0.60-1.20) mg/dL Est GFR ( Amer) > 60 (> 60) Est GFR (Non-Af Amer) > 60 (> 60) BUN/Creatinine Ratio 22 (6-26) Glucose 171 H (70-105) mg/dL Calculated Osmolality 283 (280-300) Calcium 9.5 (8.6-10.3) mg/dL Troponin I < 0.03 (< 0.04) ng/mL B-Natriuretic Peptide 169 H (Less than 100) pg/mL 12/17/17 Range/Units 02:12 WBC (4.3-11.1) K/mcL RBC (3.82-4.97) M/mcL Hgb (11.5-15.4) g/dL Hct (35.3-44.9) % MCV (83.0-100.0) fL MCH (28.0-33.3) pg MCHC (31.6-35.5) g/dL RDW (11.5-14.5) % Plt Count (140-400) K/mcL MPV (9.4-12.4) fL Immature Gran % (0-4) % Seg Neutrophils % % Lymphocytes % % Monocytes % % Eosinophils % % Basophils % % Neutrophils # (1.6-8.9) K/mcL Lymphocytes # (0.6-4.6) K/mcL Monocytes # (0.0-1.3) K/mcL Eosinophils # (0.0-0.6) K/mcL Basophils # (0.0-0.2) K/mcL D-Dimer 696 H (0-500) ng/mLFEU Sodium (136-145) mEq/L Potassium (3.5-5.1) mEq/L Chloride (98-107) mEq/L Carbon Dioxide (23-29) mEq/L BUN (8-23) mg/dL Creatinine (0.60-1.20) mg/dL Est GFR ( Amer) (> 60) Est GFR (Non-Af Amer) (> 60) BUN/Creatinine Ratio (6-26) Glucose (70-105) mg/dL Calculated Osmolality (280-300) Calcium (8.6-10.3) mg/dL Troponin I (< 0.04) ng/mL B-Natriuretic Peptide (Less than 100) pg/mL - Radiology Data Radiology results reviewed: Yes I reviewed the patient's radiology results. Chest X-Ray 12/17/17 02:08 IMPRESSION: Low lung volume portable chest with mild prominence of the perihilar markings. A mild degree of underlying congestive change or atypical infection cannot be excluded. D/ / Ottoniel Roa MD / Ottoniel Roa MD Interpreting Provider: Ottoniel Roa MD - EKG Data EKG attestation: Yes I reviewed and interpreted this EKG. EKG results narrative: EKG performed 220 normal sinus rhythm 82 beats per minute with left bundle branch block, no Sgarbossa criteria. No acute ischemic changes based off of prior EKG performed 08/15/2017.
[2017-12-17 02:26] LABS: Basophils # 0.1 K/mcL (0.0-0.2); Basophils % 0.5 %; Eosinophils # 0.6 K/mcL (0.0-0.6); Eosinophils % 4.3 %; Hematocrit 41.8 % (35.3-44.9); Hemoglobin 13.2 g/dL (11.5-15.4); Immature Granulocytes % 0.4 % (0-4); Lymphocytes # 3.5 K/mcL (0.6-4.6); Lymphocytes % 24.6 %; Mean Corpuscular HGB Conc 31.6 g/dL (31.6-35.5); Mean Corpuscular Hemoglobin 27.4 pg (28.0-33.3); Mean Corpuscular Volume 86.9 fL (83.0-100.0); Mean Platelet Volume 9.1 fL (9.4-12.4); Monocytes # 1.2 K/mcL (0.0-1.3); Monocytes % 8.2 %; Neutrophils # 8.8 K/mcL (1.6-8.9); Platelet Count 406 K/mcL (140-400); Red Blood Count 4.81 M/mcL (3.82-4.97); Red Cell Distribution Width 14.8 % (11.5-14.5)
[2017-12-17] MEDS ORDERED: Ipratropium/Albuterol Neb 3 ML ONE (02:40)
[2017-12-17 02:46] LABS: BUN/Creatinine Ratio 22 (6-26); Blood Urea Nitrogen 15 mg/dL (8-23); Calcium 9.5 mg/dL (8.6-10.3); Carbon Dioxide 27 mEq/L (23-29); Chloride 98 mEq/L (98-107); Glucose 171 mg/dL (70-105); Osmolality,Calculated 283 (280-300); Potassium 3.8 mEq/L (3.5-5.1); Sodium 134 mEq/L (136-145); eGFR For Non-African Americans > 60 (> 60)
[2017-12-17 02:47] LABS: Troponin I < 0.03 ng/mL (< 0.04)
[2017-12-17] MEDS ORDERED: Azithromycin 500 MG in D5% in Water 250 ML IVPB ONE (03:37)
--- NOTE | 2017-12-17 05:27 | Internal Med History&Physical ---
<Es Barcenas N - Last Filed: 12/17/17 06:53> Date of Encounter: 12/17/17 Time of Encounter: 05:27 Internal Medicine - H&P: HPI Chief complaint: Shortness of breath Admitted From: Emergency Dept History of present illness: Ms. Stoddard is a 77 year old female with history of hypertension, diabetes, hyperlipidemia, and CAD. She presented to the ED via EMS for shortness of breath with an initial oxygen saturation of 84%. She states that she did lay down to go to bed last night, but had to get up to use the bathroom. She says that when she did, she was unable to catch her breath. Her daughter, who is present at the bedside, reports that her mother has had a productive-sounding cough for approximately one week, though she has been unable to produce any sputum. She was evaluated by her PCP on Thursday, who prescribed her a course of azithromycin. Review of pharmacy records shows that prescription was filled on 12/15/17; however, patient reports no improvement with home antibiotic therapy. She denies any similar episodes in the past, and denies any history of COPD. She is a former smoker; however, she quit smoking in 1979. Her daughter reports that there are multiple family members that currently do smoke, and a do so in front of and in the same room as the patient. 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 Initial vital signs recorded in the ED were as follows: Temperature 98.4, HR 88, RR 20, and BP 173/92. She was also noted to have labored and shallow breathing; however, this improved with administration of nebulized breathing treatments and supplemental oxygen. Laboratory studies were significant for elevated WBC of 14.1, sodium 134, BNP 169, and d-dimer 696. Per radiologist report, chest x-ray was remarkable for low lung volume with mild prominence of perihilar markings. Review of x-ray demonstrated no apparent consolidation. Patient was seen and evaluated at the bedside. She reports that she does feel it she is breathing better than when she arrived; however, she does still feel like she is having to work harder than normal in order to get a good breath. She denies any subjective fevers or chills, headache, sinus congestion, chest pain, nausea, vomiting, or abdominal discomfort. Past Med Surg Social Fam HX - Past Medical History Medical history: arthritis, cancer, coronary artery disease, diabetes, hyperlipidemia, hypertension, osteoporosis, TIA, other Additional medical history: Chronic Back Pain DDD and stenosis. Anxiety. Depression. Vit D deficiency. DM2. DLD. DVT. Scoliosis. HLD. Diverticulosis. CP. UTI. Hypomagnemia. SOB. LHC small Ramus 80% stenosis Psychiatric history: anxiety, depression - Past Surgical History Surgical History: appendectomy, cholecystectomy, hysterectomy, knee replacement, other Additional surgical history: bilat total knee 2002. HYST 1968. Ovarian Cancer 1986. Ventral Hernia 1998. knee scope. TIA 1995. Heart cath no stents. EGD - Social History Smoking Status: Former smoker Smokeless Tobacco Status: No Alcohol use: none Drug use: none - Family History Mother Family Member Ethnicity: Non- Living Status: Hx Family Cardiac Disorders: No Hx Family Respiratory Disorders: No Hx Family Cancer: Yes (Breast, Female) Hx Family GI Disorders: No Hx Family Endocrine Disorder: No Hx Family Neuromuscular Disorders: No Hx Family Neurologic Disorders: No Hx Family HEENT Disorders: No Hx Family Autoimmune Disorders: No Sister Family Member Ethnicity: Non- Living Status: Hx Family Cancer: Yes (Breast) Grandfather Family Member Ethnicity: Non- Living Status: Hx Family Cardiac Disorders: Yes (CVA) Hx Family Neurologic Disorders: Yes (CVA) Internal Medicine - H&P: Meds Amlodipine Besylate 10 mg PO DAILY 04/29/17 [History] Aspirin [Lo-Dose Aspirin EC] 81 mg PO DAILY 04/29/17 [History] Atorvastatin [Lipitor] 40 mg PO HS 04/29/17 [History] Calcium Carb, Citrate/Vit D3 [Calcium + D3 ER Tablet] 1 tab PO DAILY 04/29/17 [History] Clopidogrel [Plavix] 75 mg PO DAILY 04/29/17 [History] Dicyclomine [Bentyl] 10 mg PO TID 04/29/17 [History] Ergocalciferol (VITAMIN D2) [Vitamin D2] 50,000 unit PO TH 04/29/17 [History] Gabapentin [Neurontin] 100 mg PO DAILY 04/29/17 [History] Insulin DETEMIR [Levemir Flextouch] 60 units SQ BID 04/29/17 [History] Isosorbide MONOnitrate (24 HR) [Imdur] 60 mg PO DAILY 04/29/17 [History] Metformin HCl [Glucophage Xr] 750 mg PO DAILY 04/29/17 [History] Metoprolol Tartrate [Lopressor] 50 mg PO BID 04/29/17 [History] Mirtazapine [Remeron] 30 mg PO HS 04/29/17 [History] Oxycodone HCl 15 mg PO TID PRN 04/29/17 [History] Potassium Chloride [K-Tab ER] 20 meq PO BID 04/29/17 [History] Sertraline [Zoloft] 150 mg PO DAILY 04/29/17 [History] Sucralfate [Carafate] 1 gm PO BID 04/29/17 [History] Timolol Maleate 0.5% 1 drop BOTH EYES DAILY 04/29/17 [History] Venlafaxine HCl [Venlafaxine HCl ER] 75 mg PO BID 04/29/17 [History] Cyanocobalamin (Vitamin B-12) [Vitamin B12] 2,500 mcg PO DAILY 11/13/17 [History] Azithromycin 250 mg PO PER PKG DI 12/17/17 [History] Brimonidine 0.2% [Alphagan] 1 drop BOTH EYES TID 12/17/17 [History] Allergy/AdvReac Type Severity Reaction Status Date / Time No Known Allergies Allergy Verified 12/17/17 06:55 All Systems PM: A 10-system review of systems was performed and is negative for pertinent findings except as documented above in the HPI. - Constitutional Vitals: Temp Pulse Resp BP Pulse Ox 98.4 F 88 21 173/92 100 12/17/17 02:07 12/17/17 02:07 12/17/17 02:43 12/17/17 02:15 12/17/17 02:43 Exam: GENERAL: Pleasant elderly female sleeping comfortably. She wakes easily to voice. She does not appear to be in acute distress. HEENT: Atraumatic and normocephalic. CARDIOVASCULAR: Regular rate and rhythm. S1 and S2 present. No murmurs, gallops, or rubs appreciated. RESPIRATORY: Diffusely decreased breath sounds bilaterally. Wheezes present that are more prominant near the midline. Accessory muscle use noted. GASTROINTESTINAL: Bowel sounds present x 4 quadrants. Abdomen is soft, nontender, and nondistended. EXTREMITIES: No clubbing, cyanosis, or edema. SKIN: Warm, dry, and intact. NEUROLOGIC: Patient answers questions appropriately and is cooperative with exam. No apparent focal deficits. Internal Med - H&P Results - Labs CBC & Chem 7: 12/17/17 02:12 12/17/17 02:12 Labs: Short CBC 12/17/17 Range/Units 02:12 WBC 14.1 H (4.3-11.1) K/mcL Hgb 13.2 (11.5-15.4) g/dL Hct 41.8 (35.3-44.9) % Plt Count 406 H (140-400) K/mcL Neutrophils # 8.8 (1.6-8.9) K/mcL BMP 12/17/17 02:12 Sodium 134 L Potassium 3.8 Chloride 98 Carbon Dioxide 27 BUN 15 Creatinine 0.69 Glucose 171 H Calcium 9.5 Cardiac Enzymes 12/17/17 Range/Units 02:12 Troponin I < 0.03 (< 0.04) ng/mL - Impressions ITS Impressions Chest X-Ray 12/17/17 02:08 IMPRESSION: Low lung volume portable chest with mild prominence of the perihilar markings. A mild degree of underlying congestive change or atypical infection cannot be excluded. D/ / Ottoniel Roa MD / Ottoniel Roa MD Interpreting Provider: Ottoniel Roa MD - Assessment and plan (1) Hypertension Current Visit: No Status: Chronic Assessment and plan: - Continue home medications of metoprolol and amlodipine Qualifiers: Hypertension type: essential hypertension Qualified Code(s): I10 - E ssential (primary) hypertension (2) Diabetes mellitus Current Visit: No Status: Chronic Assessment and plan: - Accuchecks ACHS - Low-dose corrective SSI Qualifiers: Diabetes mellitus type: type 2 Diabetes mellitus intermediate manager insulin use: unspecified intermediate manager insulin use status Diabetes mellitus complication status: with unspecified complications Qualified Code(s): E11.8 - Type 2 diabetes mellitus with unspecified complications (3) DVT prophylaxis Current Visit: No Status: Acute Assessment and plan: - Heparin 5000units SQ Q8H (4) Acute respiratory failure with hypoxia Current Visit: Yes Status: Acute Assessment and plan: Suspect secondary to acute bronchitis. Patient was evaluated by her PCP on Thursday and was prescribed azithromycin, which was filled on 12/15. She was started on azithromycin IV in the ED. - Start levaquin 750mg daily - expect a total of 5-7 days of therapy depending o n clinical picture - Prednisone 40mg PO (beginning on 12/18) x 4 days - Duonebs Q4H scheduled - Albuterol IH Q2H PRN - Strep pneumo and legionella urine antigens pending - Blood cultures pending - Repeat laboratory studies QAM - Time Spent With Patient Total time spent is greater than 50% in coordination of care (as documented) at patient's floor/unit and/or counseling patient: <Lexx Castle - Last Filed: 12/17/17 10:10> Date of Encounter: 12/17/17 Internal Medicine - H&P: HPI History of present illness: Ms. Stoddard is a 77 year old female All Systems PM: A 10-system review of systems was performed and is negative for pertinent findings except as documented above in the HPI. - Constitutional Vitals: Temp Pulse Resp BP Pulse Ox 98.4 F 82 16 192/77 94 12/17/17 08:12 12/17/17 08:12 12/17/17 08:12 12/17/17 08:12 12/17/17 08:12 Internal Med - H&P Results - Labs CBC & Chem 7: 12/17/17 02:12 12/17/17 02:12 Labs: Short CBC 12/17/17 Range/Units 02:12 WBC 14.1 H (4.3-11.1) K/mcL Hgb 13.2 (11.5-15.4) g/dL Hct 41.8 (35.3-44.9) % Plt Count 406 H (140-400) K/mcL Neutrophils # 8.8 (1.6-8.9) K/mcL BMP 12/17/17 02:12 Sodium 134 L Potassium 3.8 Chloride 98 Carbon Dioxide 27 BUN 15 Creatinine 0.69 Glucose 171 H Calcium 9.5 Cardiac Enzymes 12/17/17 Range/Units 02:12 Troponin I < 0.03 (< 0.04) ng/mL - Impressions ITS Impressions Chest X-Ray 12/17/17 02:08 IMPRESSION: Low lung volume portable chest with mild prominence of the perihilar markings. A mild degree of underlying congestive change or atypical infection cannot be excluded. D/ / 12/17/2017 07:04:49 Ottoniel Roa MD / bcarter Interpreting Provider: Ottoniel Roa MD - Assessment and plan (1) Diabetes mellitus Current Visit: No Status: Chronic Qualifiers: Diabetes mellitus type: type 2 Diabetes mellitus intermediate manager insulin use: unspecified correction insulin use status Diabetes mellitus complication status: with unspecified complications Qualified Code(s): E11.8 - Type 2 diabetes mellitus with unspecified complications (2) Hypertension Current Visit: No Status: Chronic Qualifiers: Hypertension type: essential hypertension Qualified Code(s): I10 - Essential (primary) hypertension (3) DVT prophylaxis Current Visit: No Status: Acute (4) Acute respiratory failure with hypoxia Current Visit: Yes Status: Acute - Time Spent With Patient Total time spent is greater than 50% in coordination of care (as documented) at patient's floor/unit and/or counseling patient: - Attending Attestation I performed a history and physical examination and the patient and discussed her management with the resident. I reviewed the resident's note and agree with the documented findings and plan of care. The patient has a remote history of smoking, she has daily exposure to secondhand smoke from her husbands smoking. Patient likely has undocumented COPD given her clinical presentation. We will continue treatment for COPD exacerbation. Although patient does not report any orthopnea or paroxysmal nocturnal dyspnea, rails were appreciated at the bilateral bases. Would consider echocardiogram to assess cardiac function.
--- NOTE | 2017-12-17 05:56 | Emergency Department Note ---
Disposition Clinical Impression: Hypoxia, Acute bronchospasm Acute bronchitis Qualifiers: Bronchitis organism: unspecified organism Qualified Code(s): J20.9 - Acute bro nchitis, unspecified Disposition: Admitted As Inpatient Condition: Good Referrals: Luisito Mccormick MD [Primary Care Provider] - General Adult HPI - General Chief complaint: ED Shortness of Breath/Dyspnea Stated complaint: SoB Time Seen by Provider: 12/17/17 02:07 Source: patient, EMS Mode of arrival: EMS Limitations: no limitations Nursing Notes Reviewed: Yes Vital Signs Reviewed: Yes - History of Present Illness Pain Scale: 0 - Related Data Home Medications Medication Instructions Recorded Confirmed Amlodipine Besylate 10 mg PO DAILY 04/29/17 11/13/17 Aspirin [Lo-Dose Aspirin EC] 81 mg PO DAILY 04/29/17 11/13/17 Atorvastatin [Lipitor] 40 mg PO HS 04/29/17 11/13/17 Calcium Carb, Citrate/Vit D3 1 tab PO DAILY 04/29/17 11/13/17 [Calcium + D3 ER Tablet] Clopidogrel [Plavix] 75 mg PO DAILY 04/29/17 11/13/17 Dicyclomine [Bentyl] 10 mg PO TID 04/29/17 11/13/17 Ergocalciferol (VITAMIN D2) 50,000 unit PO TH 04/29/17 11/13/17 [Vitamin D2] Gabapentin [Neurontin] 100 mg PO DAILY 04/29/17 11/13/17 Insulin DETEMIR [Levemir Flextouch] 60 units SQ BID 04/29/17 11/13/17 Isosorbide MONOnitrate (24 HR) 60 mg PO DAILY 04/29/17 11/13/17 [Imdur] Metformin HCl [Glucophage Xr] 750 mg PO DAILY 04/29/17 11/13/17 Metoprolol Tartrate [Lopressor] 50 mg PO BID 04/29/17 11/13/17 Mirtazapine [Remeron] 30 mg PO HS 04/29/17 11/13/17 Oxycodone HCl 15 mg PO TID PRN 04/29/17 11/13/17 Potassium Chloride [K-Tab ER] 20 meq PO BID 04/29/17 11/13/17 Sertraline [Zoloft] 150 mg PO DAILY 04/29/17 11/13/17 Sucralfate [Carafate] 1 gm PO BID 04/29/17 11/13/17 Timolol Maleate 0.5% 1 drop BOTH EYES DAILY 04/29/17 11/13/17 Venlafaxine HCl [Venlafaxine HCl 75 mg PO BID 04/29/17 11/13/17 ER] Cyanocobalamin (Vitamin B-12) 2,500 mcg PO DAILY 11/13/17 11/13/17 [Vitamin B12] Triamcinolone Acetonide 15 gm TP BID PRN 11/13/17 11/13/17 Previous Rx's Medication Instructions Recorded HYDROcodone/Acet 7.5/325 mg [[place] 1 tab PO Q6H PRN 3 Days #12 tablet 11/13/17 7.5-325 mg] Allergies Allergy/AdvReac Type Severity Reaction Status Date / Time No Known Allergies Allergy Verified 11/13/17 08:02 Constitutional: Denies: fever, chills ENT ED: Denies: congestion Cardiovascular: Denies: chest pain Respiratory: Reports: cough, dyspnea, wheezes. Denies: hemoptysis Gastrointestinal: Denies: abdominal pain, nausea, vomiting Genitourinary: Denies: dysuria Musculoskeletal: Denies: back pain Integumentary: Denies: rash, abrasion Neurological: Denies: headache Past Medical History - Past Medical History Medical history: Reports: arthritis, cancer, coronary artery disease, diabetes, hyperlipidemia, hypertension, osteoporosis, TIA, other Surgical history: Reports: appendectomy, cholecystectomy, hysterectomy, knee replacement, other Psychiatric history: Reports: anxiety, depression CLEAT LAYER history: Reports: non-contributory - Social History Smoking Status: Former smoker Smokeless Tobacco Status: No Alcohol use: Reports: none Drug use: Reports: none Physical Exam - General Limitations: no limitations General appearance: alert, anxious, in distress (Respiratory) Course Vital Signs Temperature 98.4 F 12/17/17 02:07 Pulse Rate 88 12/17/17 02:07 Respiratory Rate 20 12/17/17 02:07 Blood Pressure 173/92 12/17/17 02:07 O2 Sat by Pulse Oximetry 94 12/17/17 02:07 Temperature 98.4 F 12/17/17 02:07 Pulse Rate 80 12/17/17 05:47 Respiratory Rate 20 12/17/17 05:47 Blood Pressure 158/82 12/17/17 05:47 O2 Sat by Pulse Oximetry 97 12/17/17 05:47 Oxygen Delivery Oxygen Delivery Nasal Cannula Medical Decision Making - Medical Records Medical records reviewed: Yes I reviewed the patient's medical records. - Lab Data Lab results reviewed: Yes I reviewed the patient's lab results. Result diagrams: 12/17/17 02:12 12/17/17 02:12 Lab Results 12/17/17 12/17/17 12/17/17 Range/Units 02:12 02:12 02:12 WBC 14.1 H (4.3-11.1) K/mcL RBC 4.81 (3.82-4.97) M/mcL Hgb 13.2 (11.5-15.4) g/dL Hct 41.8 (35.3-44.9) % MCV 86.9 (83.0-100.0) fL MCH 27.4 L (28.0-33.3) pg MCHC 31.6 (31.6-35.5) g/dL RDW 14.8 H (11.5-14.5) % Plt Count 406 H (140-400) K/mcL MPV 9.1 L (9.4-12.4) fL Immature Gran % 0.4 (0-4) % Seg Neutrophils % 62.0 % Lymphocytes % 24.6 % Monocytes % 8.2 % Eosinophils % 4.3 % Basophils % 0.5 % Neutrophils # 8.8 (1.6-8.9) K/mcL Lymphocytes # 3.5 (0.6-4.6) K/mcL Monocytes # 1.2 (0.0-1.3) K/mcL Eosinophils # 0.6 (0.0-0.6) K/mcL Basophils # 0.1 (0.0-0.2) K/mcL D-Dimer (0-500) ng/mLFEU Sodium 134 L (136-145) mEq/L Potassium 3.8 (3.5-5.1) mEq/L Chloride 98 (98-107) mEq/L Carbon Dioxide 27 (23-29) mEq/L BUN 15 (8-23) mg/dL Creatinine 0.69 (0.60-1.20) mg/dL Est GFR ( Amer) > 60 (> 60) Est GFR (Non-Af Amer) > 60 (> 60) BUN/Creatinine Ratio 22 (6-26) Glucose 171 H (70-105) mg/dL Calculated Osmolality 283 (280-300) Calcium 9.5 (8.6-10.3) mg/dL Troponin I < 0.03 (< 0.04) ng/mL B-Natriuretic Peptide 169 H (Less than 100) pg/mL 12/17/17 Range/Units 02:12 WBC (4.3-11.1) K/mcL RBC (3.82-4.97) M/mcL Hgb (11.5-15.4) g/dL Hct (35.3-44.9) % MCV (83.0-100.0) fL MCH (28.0-33.3) pg MCHC (31.6-35.5) g/dL RDW (11.5-14.5) % Plt Count (140-400) K/mcL MPV (9.4-12.4) fL Immature Gran % (0-4) % Seg Neutrophils % % Lymphocytes % % Monocytes % % Eosinophils % % Basophils % % Neutrophils # (1.6-8.9) K/mcL Lymphocytes # (0.6-4.6) K/mcL Monocytes # (0.0-1.3) K/mcL Eosinophils # (0.0-0.6) K/mcL Basophils # (0.0-0.2) K/mcL D-Dimer 696 H (0-500) ng/mLFEU Sodium (136-145) mEq/L Potassium (3.5-5.1) mEq/L Chloride (98-107) mEq/L Carbon Dioxide (23-29) mEq/L BUN (8-23) mg/dL Creatinine (0.60-1.20) mg/dL Est GFR ( Amer) (> 60) Est GFR (Non-Af Amer) (> 60) BUN/Creatinine Ratio (6-26) Glucose (70-105) mg/dL Calculated Osmolality (280-300) Calcium (8.6-10.3) mg/dL Troponin I (< 0.04) ng/mL B-Natriuretic Peptide (Less than 100) pg/mL - Radiology Data Radiology results reviewed: Yes I reviewed the patient's radiology results. Chest X-Ray 12/17/17 02:08 IMPRESSION: Low lung volume portable chest with mild prominence of the perihilar markings. A mild degree of underlying congestive change or atypical infection cannot be excluded. D/ / Ottoniel Roa MD / Ottoniel Roa MD Interpreting Provider: Ottoniel Roa MD - EKG Data EKG #1 EKG attestation: Yes I reviewed and interpreted this EKG. EKG results narrative: EKG shows a normal sinus rhythm with ventricular rate of 82. Left bundle branch block. No significant change from prior EKG dated 08/15/2017. Attestation Statement - Attestation Attestation: I, Jae Pollard MD, personally evaluated this patient and discussed their management with the resident physician. I reviewed the resident's note and agree with the documented findings, medical decision making, and plan of care. 77-year-old female presents to the emergency department by EMS with a complaint of cough and shortness of breath which started about 4 days prior to arrival. Symptoms have gotten progressively worse. She saw her PCP yesterday and was prescribed Zithromax. She has had 2 doses. Tonight the symptoms became acutely worse. She complains of feeling very anxious and worked up and feels like she cannot calm herself down. She denies any history of COPD or breathing problems. On examination patient is a well-developed well-nourished elderly female in mild to moderate respiratory distress. She is alert and oriented 3. There is no cyanosis. Patient is mildly diaphoretic. Breath sounds are markedly decreased bilaterally with diffuse tight bilateral expiratory wheezes and bibasilar rales. Heart regular rate and rhythm. Abdomen soft and nontender with normal bowel s ounds. No pedal edema. Labs reviewed. Chest x-ray shows no definite infiltrate. EKG shows a normal sinus rhythm with a left bundle branch block which is not new. The hospitalist, Dr. Castle, was consulted and accepted admission of the patient.
[2017-12-17] MEDS ORDERED: Naloxone 0.4 MG/ML INJ IVP PRN (06:31)
[2017-12-17] MEDS ORDERED: Albuterol 2.5 MG/3 ML NEBULIZER IH PRN (06:32)
[2017-12-17] MEDS ORDERED: *HR* Dextrose 50 % in Water (Syg) 50 ML SYRINGE IVP PRN (06:33)
[2017-12-17] MEDS ORDERED: Dextrose Gel 15 GM/37.5 ML TUBE PO PRN ×2 (06:33)
[2017-12-17] MEDS ORDERED: D5% in Water 1,000 ML IVC PRN (06:33)
[2017-12-17] MEDS: Insulin LISPRO 300 UNITS/3 ML VIAL SQ SCH ×4 (08:27→21:01)
[2017-12-17] MEDS ORDERED: predniSONE 20 MG TABLET PO SCH (09:00)
[2017-12-17] MEDS: Venlafaxine XR (24 HR) 75 MG CAP.ER.24H PO SCH ×2 (09:40→21:00)
[2017-12-17] MEDS: amLODIPine 5 MG TABLET PO SCH (09:40)
[2017-12-17] MEDS: Gabapentin 100 MG CAPSULE PO SCH (09:40)
[2017-12-17] MEDS: levoFLOXacin 750 MG TABLET PO SCH (09:40)
[2017-12-17] MEDS: Aspirin Enteric Coated 81 MG Tablet PO SCH (09:40)
[2017-12-17] MEDS: Isosorbide MONOnitrate (24 HR) 60 MG TAB.ER.24H PO SCH (09:41)
[2017-12-17] MEDS: Ipratropium/Albuterol Neb 3 ML IH SCH ×3 (10:59→21:28)
[2017-12-17] MEDS: MethylPREDNISolone 40 MG/ML VIAL IVP SCH ×2 (12:25→16:43)
--- NOTE | 2017-12-17 13:44 | Event Note ---
Date of Encounter: 12/17/17 Time of Encounter: 13:38 Pt seen after midnight. Will be adding Mycoplasma blood work and resp panel. No acute changes. Pt reports that she is slowly improving.
[2017-12-17 16:40] LABS: Adenovirus Not Detected (Not Detect); Bordetella Pertussis Not Detected (Not Detect); Chlamydophila pneumoniae Not Detected (Not Detect); Coronavirus 229E Not Detected (Not Detect); Coronavirus HKU1 Not Detected (Not Detect); Coronavirus NL63 Not Detected (Not Detect); Coronavirus OC43 Not Detected (Not Detect); Human Metapneumovirus Not Detected (Not Detect); Human Rhinovirus/Enterovirus Not Detected (Not Detect); Influenza A Subtype 2009 H1 Not Detected (Not Detect); Influenza A Untypeable Not Detected (Not Detect); Influenza B Not Detected (Not Detect); Mycoplasma pneumoniae Not Detected (Not Detect); Parainfluenza Virus 1 Not Detected (Not Detect); Parainfluenza Virus 2 Not Detected (Not Detect); Parainfluenza Virus 3 Not Detected (Not Detect); Parainfluenza Virus 4 Not Detected (Not Detect); Respiratory Syncytial Virus Not Detected (Not Detect)
[2017-12-17] MEDS: Mirtazapine 15 MG TABLET PO SCH (21:02)
[2017-12-18] MEDS: MethylPREDNISolone 40 MG/ML VIAL IVP SCH ×3 (01:22→11:46)
[2017-12-18] MEDS: Ipratropium/Albuterol Neb 3 ML IH SCH ×2 (04:05→10:47)
[2017-12-18] MEDS: Insulin LISPRO 300 UNITS/3 ML VIAL SQ SCH ×4 (08:44→21:10)
[2017-12-18] MEDS: Aspirin Enteric Coated 81 MG Tablet PO SCH (08:50)
[2017-12-18] MEDS: Gabapentin 100 MG CAPSULE PO SCH (08:50)
[2017-12-18] MEDS: levoFLOXacin 750 MG TABLET PO SCH (08:50)
[2017-12-18] MEDS: Isosorbide MONOnitrate (24 HR) 60 MG TAB.ER.24H PO SCH (08:50)
[2017-12-18] MEDS: Venlafaxine XR (24 HR) 75 MG CAP.ER.24H PO SCH ×2 (08:50→21:07)
[2017-12-18] MEDS: amLODIPine 5 MG TABLET PO SCH (08:51)
[2017-12-18 10:19] LABS: Basophils % 0.2 %; Hematocrit 37.7 % (35.3-44.9); Hemoglobin 12.3 g/dL (11.5-15.4); Lymphocytes # 0.9 K/mcL (0.6-4.6); Lymphocytes % 7.1 %; Mean Corpuscular HGB Conc 32.6 g/dL (31.6-35.5); Mean Corpuscular Hemoglobin 27.8 pg (28.0-33.3); Mean Corpuscular Volume 85.3 fL (83.0-100.0); Mean Platelet Volume 9.3 fL (9.4-12.4); Monocytes # 0.3 K/mcL (0.0-1.3); Monocytes % 2.7 %; Neutrophils # 10.8 K/mcL (1.6-8.9); Platelet Count 390 K/mcL (140-400); Red Blood Count 4.42 M/mcL (3.82-4.97); Red Cell Distribution Width 14.8 % (11.5-14.5)
--- NOTE | 2017-12-18 12:28 | Discharge Summary ---
- NOTES TO OUTPATIENT PROVIDER Notes to Outpatient Provider: PCP in 5 to 7 days Orders not resulted at time of discharge: Pending orders 12/17/17 05:30 Culture,Blood [BC] Stat 12/17/17 13:31 Mycoplasma pneumoniae IgG IgM Routine 12/18/17 09:12 Chest Xray, 1 view [XR chest 1V] [XR] Routine Date of Encounter: 12/18/17 Time of Encounter: 12:27 - Discharge Diagnosis (1) Acute respiratory failure with hypoxia Priority: Primary Status: Acute Assessment and Plan: Suspect secondary to acute bronchitis. Patient was evaluated by her PCP on Thursday and was prescribed azithromycin, which was filled on 12/15. She was started on azithromycin IV in the ED. - Start levaquin 750mg daily - expect a total of 5-7 days of therapy depending on clinical picture - Prednisone 40mg PO (beginning on 12/18) x 4 days. 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 Stoddard is a 77 year old female - Time Spent with Patient Total time spent providing and/or coordinating discharge services: - Discharge Medications Home Medications: Amlodipine Besylate 10 mg PO DAILY 04/29/17 [History] Aspirin [Lo-Dose Aspirin EC] 81 mg PO DAILY 04/29/17 [History] Atorvastatin [Lipitor] 40 mg PO HS 04/29/17 [History] Calcium Carb, Citrate/Vit D3 [Calcium + D3 ER Tablet] 1 tab PO DAILY 04/29/17 [History] Clopidogrel [Plavix] 75 mg PO DAILY 04/29/17 [History] Dicyclomine [Bentyl] 10 mg PO TID 04/29/17 [History] Ergocalciferol (VITAMIN D2) [Vitamin D2] 50,000 unit PO TH 04/29/17 [History] Gabapentin [Neurontin] 100 mg PO DAILY 04/29/17 [History] Insulin DETEMIR [Levemir Flextouch] 60 units SQ BID 04/29/17 [History] Isosorbide MONOnitrate (24 HR) [Imdur] 60 mg PO DAILY 04/29/17 [History] Metformin HCl [Glucophage Xr] 750 mg PO DAILY 04/29/17 [History] Metoprolol Tartrate [Lopressor] 50 mg PO BID 04/29/17 [History] Mirtazapine [Remeron] 30 mg PO HS 04/29/17 [History] Oxycodone HCl 15 mg PO TID PRN 04/29/17 [History] Potassium Chloride [K-Tab ER] 20 meq PO BID 04/29/17 [History] Sertraline [Zoloft] 150 mg PO DAILY 04/29/17 [History] Sucralfate [Carafate] 1 gm PO BID 04/29/17 [History] Timolol Maleate 0.5% 1 drop BOTH EYES DAILY 04/29/17 [History] Venlafaxine HCl [Venlafaxine HCl ER] 75 mg PO BID 04/29/17 [History] Cyanocobalamin (Vitamin B-12) [Vitamin B12] 2,500 mcg PO DAILY 11/13/17 [History] Azithromycin 250 mg PO PER PKG DI 12/17/17 [History] Brimonidine 0.2% [Alphagan] 1 drop BOTH EYES TID 12/17/17 [History] Allergies/Adverse Reactions: Allergy/AdvReac Type Severity Reaction Status Date / Time No Known Allergies Allergy Verified 12/17/17 06:55 Date of admission: 12/17/17 05:50 Primary care physician: Luisito Mccormick MD Consults: 12/17/17 10:15 Consult to Nutrition [CONS] Routine Comment: Consulting Provider: NUTRITION Reason for Dietary Consult: MST Score Consult to Entry Level Administrative Assistant [CONS] Routine Reason for SW Consult: has [facility]; 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 Our offices will call you with an appointment time and date.) Forms: ED Satisfaction Letter
[2017-12-18] MEDS ORDERED: Isovue-370 500 ML INFUS..BTL IV ONE (12:52)
--- NOTE | 2017-12-18 16:54 | Electrocardiograph Report ---
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
--- NOTE | 2017-12-18 16:55 | Internal Med Progress Note ---
Hospitalist Progress Note - Encounter Date of Encounter: 12/18/17 Time of Encounter: 16:49 - Subjective Interval History: Pt reports feeling better today but WBC still elevated. She denies fever, chills N/V or diarrhea. She denies CP and reports SOB much improved on neb therapy. Ambulatory pulse ox dropped to 88% on RA with activity and WBC 12.1 but slowly improving. - Exam Vitals: Temp Pulse Resp BP Pulse Ox 98.8 F 77 16 186/76 92 12/18/17 15:54 12/18/17 15:54 12/18/17 15:54 12/18/17 15:54 12/18/17 15:54 Exam: EXAM: GENERAL: Pleasant elderly female sleeping comfortably. She wakes easily to voice. She does not appear to be in acute distress. HEENT: Atraumatic and normocephalic. CARDIOVASCULAR: Regular rate and rhythm. S1 and S2 present. No murmurs, gallops, or rubs appreciated. RESPIRATORY: Diffusely decreased breath sounds bilaterally. Wheezes resolved but crackles present L > R. Accessory muscle use noted. GASTROINTESTINAL: Bowel sounds present x 4 quadrants. Abdomen is soft, non- tender, and non-distended. EXTREMITIES: No clubbing, cyanosis, or edema. SKIN: Warm, dry, and intact. NEUROLOGIC: Patient answers questions appropriately and is cooperative with exam. No apparent focal deficits. - Assessment and Plan (1) Acute respiratory failure with hypoxia Current Visit: Yes Status: Acute Assessment and Plan: Suspect secondary to acute bronchitis. Patient was evaluated by her PCP on Thursday and was prescribed azithromycin, which was filled on 12/15. Pt's 6 minute walk showed saturation of 88% on room air. Pt does not have prior history of COPD and quit smoking 40 yrs ago. Since pt has no prior hx of COPD and CXR does not show hyperinflation of any thing to suggest COPD at this time, she does not qualify for home oxygen without a diagnosis. Hopeful that hypoxia will resolve with few more days of albuterol, prednisone, and levaquin. She will likely benefit from out pt PFT with DLCO. She states breathing much improved with neb therapy and requesting DC home on albuterol. Will Likely DC home on Albuterol inh and neb therapy to be determine by PCP pending her PFT study done out pt. CTA chest done due to elevated D dimer neg for PE. Repeat chest x ray 12/17/2017 showed mild congestion vs atypical infection but pt does not clinically appear hypovolemic. Possibly DC hopefully over the weekend. - Start levaquin 750mg daily - expect a total of 5-7 days of therapy depending on clinical picture - Prednisone 40mg PO (beginning on 12/18) x 4 days. - Duonebs Q4H scheduled - Albuterol IH Q2H PRN - Strep pneumo and legionella urine antigens negative - Blood cultures in progress (2) Diabetes mellitus Current Visit: No Status: Chronic Assessment and Plan: - Accu checks ACHS - Low-dose corrective SSI Comments: Well controlled on current medical managment. Continue with fingersticks qACHS. Check HgbA1C (3) Hypertension Current Visit: No Status: Chronic Assessment and Plan: - Continue home medications of metoprolol and amlodipine Comments: controlled on current medical management. Continue with amlodipine and metoprolol. DVT Prophylaxis: Lovenox - Summary of Assessment and Plan Summary of Assessment and Plan: History of present illness: Dr. Castle Ms. Stoddard is a 77 year old female with history of hypertension, diabetes, hyperlipidemia, and CAD. She presented to the ED via EMS for shortness of breath with an initial oxygen saturation of 84%. She states that she did lay down to go to bed last night, but had to get up to use the bathroom. She says that when she did, she was unable to catch her breath. Her daughter, who is present at the bedside, reports that her mother has had a productive-sounding cough for approximately one week, though she has been unable to produce any sputum. She was evaluated by her PCP on Thursday, who prescribed her a course of azithromycin. Review of pharmacy records shows that prescription was filled on 12/15/17; however, patient reports no improvement with home antibiotic therapy. She denies any similar episodes in the past, and denies any history of COPD. She is a former smoker; however, she quit smoking in 1979. Her daughter reports that there are multiple family members that currently do smoke, and a do so in front of and in the same room as the patient. 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 Initial vital signs recorded in the ED were as follows: Temperature 98.4, HR 88, RR 20, and BP 173/92. She was also noted to have labored and shallow breathing; however, this improved with administration of nebulized breathing treatments and supplemental oxygen. Laboratory studies were significant for elevated WBC of 14.1, sodium 134, BNP 169, and d-dimer 696. Per radiologist report, chest x-ray was remarkable for low lung volume with mild prominence of perihilar markings. Review of x-ray demonstrated no apparent consolidation. Patient was seen and evaluated at the bedside. She reports that she does feel it she is breathing better than when she arrived; however, she does still feel like she is having to work harder than normal in order to get a good breath. She denies any subjective fevers or chills, headache, sinus congestion, chest pain, nausea, vomiting, or abdominal discomfort. - Time Spent with Patient Total time spent is greater than 50% in coordination of care (as documented) at patient's floor/unit and/or counseling patient: less than 15 minutes Plan of Care Discussed with: patient Internal Medicine: Result - Labs CBC & Chem 7: 12/18/17 10:02 12/17/17 02:12 Labs: Short CBC 12/18/17 Range/Units 10:02 WBC 12.1 H (4.3-11.1) K/mcL Hgb 12.3 (11.5-15.4) g/dL Hct 37.7 (35.3-44.9) % Plt Count 390 (140-400) K/mcL Neutrophils # 10.8 H (1.6-8.9) K/mcL - ABG Interpretation ABG results: PT/INR, D-dimer D-Dimer 696 ng/mLFEU (0-500) H 12/17/17 02:12 - Impressions Impressions Chest X-Ray 12/18/17 09:12 IMPRESSION: No acute process. D/ / Jan Reagan MD / Jan Reagan MD Interpreting Provider: Jan Reagan MD Chest CTA 12/18/17 12:52 IMPRESSION: No evidence of pulmonary embolism or acute pulmonary abnormality. Mild dependent atelectasis. No bullous changes. D/ / Vijay Fisher MD / Vijay Fisher MD Interpreting Provider: Vijay Fisher MD Consult Discharge Plan - Plan Referrals: Luisito Mccormick MD [Primary Care Provider] - (Your appointment has been requested. 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
[2017-12-18] MEDS: predniSONE 20 MG TABLET PO SCH (17:27)
[2017-12-18] MEDS: Mirtazapine 15 MG TABLET PO SCH (21:06)
[2017-12-19] MEDS ORDERED: *HR* Enoxaparin 40 MG/0.4 ML SYRINGE SQ SCH (06:00)
[2017-12-19] MEDS: Insulin LISPRO 300 UNITS/3 ML VIAL SQ SCH ×4 (08:14→20:32)
[2017-12-19] MEDS: predniSONE 20 MG TABLET PO SCH (08:15)
[2017-12-19] MEDS: Aspirin Enteric Coated 81 MG Tablet PO SCH (08:15)
[2017-12-19] MEDS: Gabapentin 100 MG CAPSULE PO SCH (08:15)
[2017-12-19] MEDS: levoFLOXacin 750 MG TABLET PO SCH (08:15)
[2017-12-19] MEDS: amLODIPine 5 MG TABLET PO SCH (08:15)
[2017-12-19] MEDS: Venlafaxine XR (24 HR) 75 MG CAP.ER.24H PO SCH ×2 (08:16→20:31)
[2017-12-19] MEDS: Isosorbide MONOnitrate (24 HR) 60 MG TAB.ER.24H PO SCH (08:16)
[2017-12-19] MEDS ORDERED: predniSONE 20 MG TABLET PO SCH (09:00)
--- NOTE | 2017-12-19 10:50 | Internal Med Progress Note ---
Hospitalist Progress Note - Encounter Date of Encounter: 12/19/17 Time of Encounter: 10:48 - Subjective Interval History: Ms Stoddard is currently in observation for acute bronchitis with hypoxemia. She remains moderate to high risk due to potential for worsening clinical status. Ms Stoddard has been up in the room and breathes OK at that time. Still feels very weak. Has not been up out of room. No fever or chills. Still with some cough. No abd pain. No CP. - Exam Vitals: Temp Pulse Resp BP Pulse Ox 98.2 F 66 16 177/74 91 12/19/17 07:09 12/19/17 07:09 12/19/17 07:09 12/19/17 07:09 12/19/17 08:15 Exam: General: Alert and oriented. Comfortable at this time. Skin: Normal color, no rash, no lesions. H: Normocephalic. EENT: EOMI, pupils equal. Mucus membranes moist. No lesion. Cardiovascular: Normal S1 & S2, no rubs, murmurs or gallops. Pulse regular and not tachycardic. Lungs: Normal breath sounds, no wheezes or crackles. Good air movement today. Abdomen: Soft, non-tender, no rigidity. Normal bowel sounds. Extremities: No deformity, no edema or tenderness, no joint swelling or clubbing. Neurological: Normal cognition and motor skills. Pulses: Carotid and radial pulses normal +2. Rest of the physical exam is non contributory - Assessment and Plan (1) Diabetes mellitus Current Visit: No Status: Chronic Assessment and Plan: Blood sugars markedly elevated at this time. Long acting insulin had been on ho ld and was reordered to day. Continue accuchecks and coverage. Comments: Well controlled on current medical managment. Continue with fingersticks qACHS. Check HgbA1C (2) Acute bronchitis Current Visit: Yes Status: Acute Assessment and Plan: Seems to be slowly improving. Still dyspneic with movement. Increase activity today. (3) Acute respiratory failure with hypoxia Current Visit: Yes Status: Acute Assessment and Plan: Has been off oxygen while at rest. Check oxygenation while up and moving today. (4) Hypertension Current Visit: No Status: Chronic Assessment and Plan: High this AM. PRN hydralazine added. If persists will add another agent. Comments: (5) CAD (coronary artery disease) Current Visit: No Status: Chronic Assessment and Plan: Chronic issue. Asymptomatic at this time. (6) Depression Current Visit: No Status: Chronic Assessment and Plan: Chronic issue DVT Prophylaxis: Lovenox - Time Spent with Patient Total time spent is greater than 50% in coordination of care (as documented) at patient's floor/unit and/or counseling patient: Internal Medicine: Result - Labs CBC & Chem 7: 12/19/17 11:04 12/19/17 11:04 - ABG Interpretation ABG results: PT/INR, D-dimer D-Dimer 696 ng/mLFEU (0-500) H 12/17/17 02:12 - Impressions Impressions Chest X-Ray 12/18/17 09:12 IMPRESSION: No acute process. D/ / Jan Reagan MD / Jan Reagan MD Interpreting Provider: Jan Reagan MD Chest CTA 12/18/17 12:52 IMPRESSION: No evidence of pulmonary embolism or acute pulmonary abnormality. Mild dependent atelectasis. No bullous changes. D/ / Vijay Fisher MD / Vijay Fisher MD Interpreting Provider: Vijay Fisher MD Consult Discharge Plan - Plan Referrals: Luisito Mccormick MD [Primary Care Provider] - (Your appointment has been requested. Our offices will call you with an appointment time and date.) (1) Diabetes mellitus Qualifiers: Diabetes mellitus type: type 2 Diabetes mellitus snf insulin use: with long term care social worker use Diabetes mellitus complication status: with hyperglycemia Qualified Code(s): E11.65 - Type 2 diabetes mellitus with hyperglycemia; Z79.4 - intermediate designer (current) use of insulin (2) Acute bronchitis Qualifiers: Bronchitis organism: unspecified organism Qualified Code(s): J20.9 - Acute bronchitis, unspecified (4) Hypertension Qualifiers: Hypertension type: essential hypertension Qualified Code(s): I10 - Essential (primary) hypertension (5) CAD (coronary artery disease) Qualifiers: Coronary Disease-Associated Artery/Lesion type: [place] artery [place] vs. transplanted heart: [place] heart Associated angina: without angina Qualified Code(s): I25.10 - Atherosclerotic heart disease of [place] coronary artery wit hout angina pectoris (6) Depression Qualifiers: Depression Type: unspecified Qualified Code(s): F32.9 - Major depressive disorder, single episode, unspecified
[2017-12-19 11:14] LABS: Hematocrit 38.5 % (35.3-44.9); Hemoglobin 12.4 g/dL (11.5-15.4); Immature Platelets 1.2 % (1.1-6.1); Mean Corpuscular HGB Conc 32.2 g/dL (31.6-35.5); Mean Corpuscular Hemoglobin 27.3 pg (28.0-33.3); Mean Corpuscular Volume 84.6 fL (83.0-100.0); Mean Platelet Volume 9.1 fL (9.4-12.4); Red Blood Count 4.55 M/mcL (3.82-4.97); Red Cell Distribution Width 14.9 % (11.5-14.5)
[2017-12-19 11:32] LABS: Alanine Aminotransferase 11 Units/L (7-52); Albumin 3.6 g/dL (3.5-5.7); Albumin/Globulin Ratio 1.1 (1.1-2.2); Alkaline Phosphatase 71 Units/L (34-104); Aspartate Amino Transferase 13 Units/L (13-39); BUN/Creatinine Ratio 45 (6-26); Bilirubin,Total 0.2 mg/dL (0.3-1.0); Blood Urea Nitrogen 29 mg/dL (8-23); Calcium 8.8 mg/dL (8.6-10.3); Carbon Dioxide 27 mEq/L (23-29); Chloride 99 mEq/L (98-107); Globulin 3.2 g/dL (2.4-3.5); Glucose 356 mg/dL (70-105); Magnesium 1.8 mg/dL (1.6-2.6); Osmolality,Calculated 298 (280-300); Potassium 4.1 mEq/L (3.5-5.1); Sodium 134 mEq/L (136-145); Total Protein 6.8 g/dL (6.4-8.9); eGFR For Non-African Americans > 60 (> 60)
[2017-12-19] MEDS ORDERED: hydrALAZINE 10 MG TABLET PO PRN (11:42)
[2017-12-19] MEDS: *HR* OxyCODONE Immed Rel 15 MG TABLET PO PRN ×2 (14:18→22:03)
[2017-12-19] MEDS: Sucralfate 1 GM TABLET PO SCH (20:31)
[2017-12-19] MEDS: Mirtazapine 15 MG TABLET PO SCH (20:33)
[2017-12-19] MEDS ORDERED: Insulin DETEMIR 100 UNIT/ML X5UNITS SQ SCH (21:00)
[2017-12-19] MEDS: Insulin DETEMIR 100 UNIT/ML X5UNITS SQ SCH (22:04)
[2017-12-20] MEDS ORDERED: *HR* Enoxaparin 40 MG/0.4 ML SYRINGE SQ SCH (06:00)
[2017-12-20 06:58] VITALS: BP 174/81
[2017-12-20] MEDS: Insulin LISPRO 300 UNITS/3 ML VIAL SQ SCH (08:31)
--- NOTE | 2017-12-20 09:06 | Discharge Summary ---
- NOTES TO OUTPATIENT PROVIDER Notes to Outpatient Provider: Pt admitted for acute bronchitis. Initially required oxygen but has improved. Needs further workup (PFT) as outpatient. Orders not resulted at time of discharge: Pending orders 12/17/17 05:30 Culture,Blood [BC] Stat 12/17/17 13:31 Mycoplasma pneumoniae IgG IgM Routine 12/21/17 04:00 CBC [Complete Blood Count] [HEME] AM 0400 CMP [Comprehensive Metabolic Panel] AM 0400 12/22/17 04:00 CBC [Complete Blood Count] [HEME] AM 0400 CMP [Comprehensive Metabolic Panel] AM 0400 Date of Encounter: 12/20/17 Time of Encounter: 08:59 - Discharge Diagnosis (1) Diabetes mellitus Priority: Secondary Status: Chronic Qualifiers: Diabetes mellitus type: type 2 Diabetes mellitus crowning inspector insulin use: with long-term use Diabetes mellitus complication status: with hyperglycemia Qualified Code(s): E11.65 - Type 2 diabetes mellitus with hyperglycemia; Z79.4 - longterm (current) use of insulin (2) Acute bronchitis Priority: Secondary Status: Acute Qualifiers: Bronchitis organism: unspecified organism Qualified Code(s): J20.9 - Acute bronchitis, unspecified (3) Acute respiratory failure with hypoxia Priority: Primary Status: Resolved (4) Hypertension Priority: Secondary Status: Chronic Qualifiers: Hypertension type: essential hypertension Qualified Code(s): I10 - Essent ial (primary) hypertension (5) CAD (coronary artery disease) Priority: Secondary Status: Chronic Qualifiers: Coronary Disease-Associated Artery/Lesion type: [place] artery [place] vs. transplanted heart: [place] heart Associated angina: without angina Qualified Code(s): I25.10 - Atherosclerotic heart disease of [place] coronary artery without angina pectoris (6) Depression Priority: Secondary Status: Chronic Qualifiers: Depression Type: unspecified Qualified Code(s): F32.9 - Major depressive disorder, single episode, unspecified Hospital course: Ms. Stoddard is a 77 year old female with hx of DM presented to ED with hypoxia and dyspnea. She was evaluated and admitted for further care. Ms Stoddard was admitted to the [facility]. She was started on abx, steroids, aerosols and oxygen. She had very slow improvement in symptoms. Work up was consistent with acute bronchitis and it was felt she needed further work up outpatient for eval for possible COPD. She initially was requiring oxygen with walking but did not qualify for it to be covered as it was for an acute process. She was continued on steroids and abx in the hospital. Today she is up in chair. She has been off oxygen. She is afebrile and ready for discharge home. Discharge discussed with: patient - Time Spent with Patient Total time spent providing and/or coordinating discharge services: 41min - Discharge Medications Prescriptions: RX: Albuterol Sulfate [Albuterol Inhaler] 2 puff IH [id number] #2 inhaler RX: levoFLOXacin [Levaquin] 750 mg PO DAILY #3 tablet RX: predniSONE [PredniSONE] 10 mg PO DAILY #9 tablet Home Medications: RX: Amlodipine Besylate 10 mg PO DAILY 04/29/17 [History] RX: Aspirin [Lo-Dose Aspirin EC] 81 mg PO DAILY 04/29/17 [History] RX: Atorvastatin [Lipitor] 40 mg PO HS 04/29/17 [History] RX: Calcium Carb, Citrate/Vit D3 [Calcium + D3 ER Tablet] 1 tab PO DAILY 04/29/17 [History] RX: Clopidogrel [Plavix] 75 mg PO DAILY 04/29/17 [History] RX: Dicyclomine [Bentyl] 10 mg PO TID 04/29/17 [History] RX: Ergocalciferol (VITAMIN D2) [Vitamin D2] 50,000 unit PO TH 04/29/17 [History] RX: Gabapentin [Neurontin] 100 mg PO DAILY 04/29/17 [History] RX: Insulin DETEMIR [Levemir Flextouch] 60 units SQ BID 04/29/17 [History] RX: Isosorbide MONOnitrate (24 HR) [Imdur] 60 mg PO DAILY 04/29/17 [History] RX: Metformin HCl [Glucophage Xr] 750 mg PO DAILY 04/29/17 [History] RX: Metoprolol Tartrate [Lopressor] 50 mg PO BID 04/29/17 [History] RX: Mirtazapine [Remeron] 30 mg PO HS 04/29/17 [History] RX: Oxycodone HCl 15 mg PO TID PRN 04/29/17 [History] RX: Potassium Chloride [K-Tab ER] 20 meq PO BID 04/29/17 [History] RX: Sertraline [Zoloft] 150 mg PO DAILY 04/29/17 [History] RX: Sucralfate [Carafate] 1 gm PO BID 04/29/17 [History] RX: Timolol Maleate 0.5% 1 drop BOTH EYES DAILY 04/29/17 [History] RX: Venlafaxine HCl [Venlafaxine HCl ER] 75 mg PO BID 04/29/17 [History] RX: Cyanocobalamin (Vitamin B-12) [Vitamin B12] 2,500 mcg PO DAILY 11/13/17 [History] RX: Brimonidine 0.2% [Alphagan] 1 drop BOTH EYES TID 12/17/17 [History] RX: Albuterol Sulfate [Albuterol Inhaler] 2 puff IH [id number] #2 inhaler 12/20/17 [Rx] RX: levoFLOXacin [Levaquin] 750 mg PO DAILY #3 tablet 12/20/17 [Rx] RX: predniSONE [PredniSONE] 10 mg PO DAILY #9 tablet 12/20/17 [Rx] Allergies/Adverse Reactions: Allergy/AdvReac Type Severity Reaction Status Date / Time No Known Allergies Allergy Verified 12/17/17 06:55 Date of admission: 12/19/17 15:57 Primary care physician: Luisito Mccormick MD Consults: 12/17/17 10:15 Consult to Nutrition [CONS] Routine Comment: Consulting Provider: NUTRITION Reason for Dietary Consult: MST Score Consult to Cardiograph Operator [CONS] Routine Reason for SW Consult: has [facility]; 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 Absent: rhonchi, wheezes Additional comments: Faint bibasilar rales. - Cardiovascular Cardiovascular exam: Present: RRR. Absent: tachycardia - GI/Abdominal GI/Abdominal exam: Present: soft. Absent: tenderness - Extremities Exam Extremities exam: Present: warm. Absent: tenderness - Neurological Exam Neurological exam: Present: alert, oriented X3, no focal deficits - Skin Skin exam: Present: dry, warm - Patient Status Disposition: Home, Self-Care Condition: Good Functional capacity at discharge: independent ambulation Overall status at discharge: patient is progressing back to baseline - Discharge Instructions Instructions: Acute Respiratory Distress Syndrome (DC), Depression (DC), Chronic Hypertension (DC), Anemia (GEN), Pneumonia (DC) Follow Up With: Luisito Mccormick MD [Primary Care Provider] - (Your appointment has been requested. Our offices will call you with an appointment time and date.) Forms: ED Satisfaction Letter - Diet and Activity Activity: increase activity as tolerated Diet: advance to your usual diet
[2017-12-20] MEDS: Aspirin Enteric Coated 81 MG Tablet PO SCH (09:12)
[2017-12-20] MEDS: Sucralfate 1 GM TABLET PO SCH (09:12)
[2017-12-20] MEDS: Venlafaxine XR (24 HR) 75 MG CAP.ER.24H PO SCH (09:12)
[2017-12-20] MEDS: Isosorbide MONOnitrate (24 HR) 60 MG TAB.ER.24H PO SCH (09:12)
[2017-12-20] MEDS: predniSONE 20 MG TABLET PO SCH (09:13)
[2017-12-20] MEDS: amLODIPine 5 MG TABLET PO SCH (09:13)
[2017-12-20] MEDS: Gabapentin 100 MG CAPSULE PO SCH (09:13)
[2017-12-20] MEDS: levoFLOXacin 750 MG TABLET PO SCH (09:13)
[2017-12-20] MEDS: Insulin DETEMIR 100 UNIT/ML X5UNITS SQ SCH (09:13)
[2017-12-20] MEDS: *HR* OxyCODONE Immed Rel 15 MG TABLET PO PRN (10:42)
[2017-12-21] MEDS ORDERED: predniSONE 20 MG TABLET PO SCH (09:00)
[2017-12-21 15:12] LABS: Mycoplasma pneumoniae IgG 0.23 U/L (<=0.09)
--- NOTE | 2017-12-21 18:04 | Physician Discharge Referral ---
Home Health/Hosp Referral Info Transfer to: Home Health Provider in Charge Post Discharge: PCP - Diagnosis (1) Diabetes mellitus Priority: Secondary Status: Chronic (2) Acute bronchitis Priority: Secondary Status: Acute (3) Acute respiratory failure with hypoxia Priority: Primary Status: Resolved (4) Hypertension Priority: Secondary Status: Chronic (5) CAD (coronary artery disease) Priority: Secondary Status: Chronic (6) Depression Priority: Secondary Status: Chronic - Respiratory Orders None Smoking Cessation: Smoking cessation has been advised. For more information, call the [place] Tobacco Quit Line at 0-071-XVWI-NOW. - Diet/Nutrition Diet/Nutrition Orders: No Concentrated Sweets - Activity Activity Orders: Up ad nicole - Services Needed Following services are medically necessary services: Nursing, Physical Therapy, Occupational Therapy - Transfer Medications Prescriptions: Albuterol Sulfate [Albuterol Inhaler] 2 puff IH [id number] #2 inhaler levoFLOXacin [Levaquin] 750 mg PO DAILY #3 tablet predniSONE [PredniSONE] 10 mg PO DAILY #9 tablet Home Medications: Amlodipine Besylate 10 mg PO DAILY 04/29/17 [History] Aspirin [Lo-Dose Aspirin EC] 81 mg PO DAILY 04/29/17 [History] Atorvastatin [Lipitor] 40 mg PO HS 04/29/17 [History] Calcium Carb, Citrate/Vit D3 [Calcium + D3 ER Tablet] 1 tab PO DAILY 04/29/17 [History] Clopidogrel [Plavix] 75 mg PO DAILY 04/29/17 [History] Dicyclomine [Bentyl] 10 mg PO TID 04/29/17 [History] Ergocalciferol (VITAMIN D2) [Vitamin D2] 50,000 unit PO TH 04/29/17 [History] Gabapentin [Neurontin] 100 mg PO DAILY 04/29/17 [History] Insulin DETEMIR [Levemir Flextouch] 60 units SQ BID 04/29/17 [History] Isosorbide MONOnitrate (24 HR) [Imdur] 60 mg PO DAILY 04/29/17 [History] Metformin HCl [Glucophage Xr] 750 mg PO DAILY 04/29/17 [History] Metoprolol Tartrate [Lopressor] 50 mg PO BID 04/29/17 [History] Mirtazapine [Remeron] 30 mg PO HS 04/29/17 [History] Oxycodone HCl 15 mg PO TID PRN 04/29/17 [History] Potassium Chloride [K-Tab ER] 20 meq PO BID 04/29/17 [History] Sertraline [Zoloft] 150 mg PO DAILY 04/29/17 [History] Sucralfate [Carafate] 1 gm PO BID 04/29/17 [History] Timolol Maleate 0.5% 1 drop BOTH EYES DAILY 04/29/17 [History] Venlafaxine HCl [Venlafaxine HCl ER] 75 mg PO BID 04/29/17 [History] Cyanocobalamin (Vitamin B-12) [Vitamin B12] 2,500 mcg PO DAILY 11/13/17 [History] Brimonidine 0.2% [Alphagan] 1 drop BOTH EYES TID 12/17/17 [History] Albuterol Sulfate [Albuterol Inhaler] 2 puff IH [id number] #2 inhaler 12/20/17 [Rx] levoFLOXacin [Levaquin] 750 mg PO DAILY #3 tablet 12/20/17 [Rx] predniSONE [PredniSONE] 10 mg PO DAILY #9 tablet 12/20/17 [Rx] Allergies/Adverse Reactions: Allergy/AdvReac Type Severity Reaction Status Date / Time No Known Allergies Allergy Verified 12/17/17 06:55 Certification: Further, I certify that my clinical findings support that this patient is homebound (i.e. absences from home require considerable and taxing effort and are for medical reasons or yarsanism services or infrequently or short duration when for other reasons) because: Homebound Reason: Patient requires assistance of a person or device to safely leave home, Severity of cardiac or pulmonary status limits activity tolerance Attestation: My signature below is to certify that this patient is under my care and that I, or nurse practitioner, or a physician's metallurgical laboratory assistant working with me, has a [id number] encounter with this patient.
[2017-12-24] MEDS ORDERED: predniSONE 10 MG TABLET PO SCH (17:00)
== END 2017-12-20 11:03 | disposition home or self-care (01) | DRG 190 ==
LOC: EMEROOARM 02:00 → 2ANU 02:00 → SUATTDRO 05:50 → 2ANU 07:41 → 3BNU 15:46
PROVIDERS: ADMIT Internal Medicine; ATTEND Internal Medicine

== ENCOUNTER 2018-12-25 10:34 | Inpatient (IN) ==
[2018-12-25] MEDS ORDERED: *HR* OxyCODONE/APAP 10/325 TABLET PO ONE (11:13)
[2018-12-25] MEDS ORDERED: *HR* FentaNYL (PF) 100 MCG/2 ML VIAL IVP ONE (13:45)
[2018-12-25] MEDS ORDERED: MOM Conc 10 ML UD.LIQ PO PRN (16:13)
[2018-12-25] MEDS ORDERED: Ondansetron 4 MG/2 ML VIAL IVP PRN (16:13)
[2018-12-25] MEDS ORDERED: Mag Hydrox/Al Hydrox/Simeth 30 ML UDC PO PRN (16:13)
[2018-12-25] MEDS ORDERED: Naloxone 0.4 MG/ML INJ IVP PRN (16:13)
[2018-12-25] MEDS ORDERED: *HR* Promethazine 25 MG/ML VIAL IVP PRN (16:13)
[2018-12-25] MEDS ORDERED: Dextrose Gel 15 GM/37.5 ML TUBE PO PRN ×2 (16:16)
[2018-12-25] MEDS ORDERED: D5% in Water 1,000 ML IVC PRN (16:16)
[2018-12-25] MEDS ORDERED: *HR* Dextrose 50 % in Water (Syg) 50 ML SYRINGE IVP PRN (16:16)
[2018-12-25] MEDS: Insulin LISPRO 300 UNITS/3 ML VIAL SQ SCH ×2 (17:29→21:27)
[2018-12-25] MEDS: *HR* Heparin 5,000 UNIT/ML VIAL SQ SCH (17:34)
[2018-12-25] MEDS: Insulin DETEMIR 100 UNIT/ML X5UNITS SQ SCH (21:29)
[2018-12-26] MEDS: *HR* Heparin 5,000 UNIT/ML VIAL SQ SCH ×2 (06:09→17:16)
[2018-12-26] MEDS: Insulin LISPRO 300 UNITS/3 ML VIAL SQ SCH ×4 (07:45→21:06)
[2018-12-26] MEDS: Insulin DETEMIR 100 UNIT/ML X5UNITS SQ SCH ×2 (07:50→21:08)
[2018-12-26] MEDS ORDERED: Aspirin 81 MG TAB.CHEW PO SCH (09:00)
[2018-12-26] MEDS: *HR* OxyCODONE/APAP 5/325 TABLET PO PRN ×2 (09:36→17:16)
[2018-12-26 16:11] LABS: Basophils % 0.5 %; Eosinophils # 0.2 K/mcL (0.0-0.6); Eosinophils % 2.6 %; Hematocrit 39.8 % (35.3-44.9); Hemoglobin 13.3 g/dL (11.5-15.4); Immature Granulocytes % 0.4 % (0-4); Lymphocytes % 26.4 %; Mean Corpuscular HGB Conc 33.4 g/dL (31.6-35.5); Mean Corpuscular Hemoglobin 29.8 pg (28.0-33.3); Mean Corpuscular Volume 89.2 fL (83.0-100.0); Mean Platelet Volume 9.4 fL (9.4-12.4); Monocytes # 0.7 K/mcL (0.0-1.3); Neutrophils # 4.7 K/mcL (1.6-8.9); Platelet Count 275 K/mcL (140-400); Red Blood Count 4.46 M/mcL (3.82-4.97); Red Cell Distribution Width 13.4 % (11.5-14.5); Segmented Neutrophils % 61.1 %; White Blood Count 7.7 K/mcL (4.3-11.1)
[2018-12-26 16:32] LABS: Alanine Aminotransferase 12 Units/L (7-52); Albumin 3.7 g/dL (3.5-5.7); Albumin/Globulin Ratio 1.2 (1.1-2.2); Alkaline Phosphatase 65 Units/L (34-104); Aspartate Amino Transferase 16 Units/L (13-39); BUN/Creatinine Ratio 18 (6-26); Bilirubin,Total 0.3 mg/dL (0.3-1.0); Blood Urea Nitrogen 14 mg/dL (8-23); Calcium 9.1 mg/dL (8.6-10.3); Carbon Dioxide 29 mEq/L (23-29); Chloride 99 mEq/L (98-107); Globulin 3.2 g/dL (2.4-3.5); Glucose 111 mg/dL (70-105); Osmolality,Calculated 287 (280-300); Potassium 3.6 mEq/L (3.5-5.1); Sodium 138 mEq/L (136-145); Total Protein 6.9 g/dL (6.4-8.9); eGFR For African Americans > 60 (> 60); eGFR For Non-African Americans > 60 (> 60)
[2018-12-26 16:56] LABS: Vitamin B12 253 pg/mL (250-1100); Vitamin D 25 Hydroxy 29 ng/mL (30-80)
[2018-12-27 05:26] LABS: Hematocrit 38.8 % (35.3-44.9); Mean Corpuscular HGB Conc 33.5 g/dL (31.6-35.5); Mean Corpuscular Volume 89.4 fL (83.0-100.0); Mean Platelet Volume 9.4 fL (9.4-12.4); Platelet Count 271 K/mcL (140-400); Red Blood Count 4.34 M/mcL (3.82-4.97); Red Cell Distribution Width 13.4 % (11.5-14.5); White Blood Count 6.9 K/mcL (4.3-11.1)
[2018-12-27 05:44] LABS: BUN/Creatinine Ratio 21 (6-26); Blood Urea Nitrogen 14 mg/dL (8-23); Calcium 8.7 mg/dL (8.6-10.3); Carbon Dioxide 31 mEq/L (23-29); Chloride 98 mEq/L (98-107); Glucose 113 mg/dL (70-105); Osmolality,Calculated 287 (280-300); Potassium 3.4 mEq/L (3.5-5.1); Sodium 138 mEq/L (136-145); eGFR For African Americans > 60 (> 60); eGFR For Non-African Americans > 60 (> 60)
[2018-12-27] MEDS: *HR* Heparin 5,000 UNIT/ML VIAL SQ SCH (05:46)
[2018-12-27] MEDS ORDERED: amLODIPine 5 MG TABLET PO SCH (09:00)
[2018-12-27] MEDS ORDERED: Isosorbide MONOnitrate (24 HR) 60 MG TAB.ER.24H PO SCH (09:00)
[2018-12-27] MEDS ORDERED: Venlafaxine XR (24 HR) 75 MG CAP.ER.24H PO SCH (09:00)
[2018-12-27] MEDS ORDERED: Aspirin Enteric Coated 81 MG Tablet PO SCH (09:00)
[2018-12-27] MEDS ORDERED: Cyanocobalamin (B-12) 1,000 MCG TABLET PO SCH (09:00)
[2018-12-27] MEDS ORDERED: Cholecalciferol (D-3) 1,000 UNIT (25MCG) TABLET PO SCH (09:00)
[2018-12-27] MEDS: Insulin DETEMIR 100 UNIT/ML X5UNITS SQ SCH (09:07)
[2018-12-27] MEDS: Insulin LISPRO 300 UNITS/3 ML VIAL SQ SCH ×2 (09:09→13:30)
[2018-12-27] MEDS: *HR* OxyCODONE/APAP 5/325 TABLET PO PRN (09:17)
[2018-12-27] MEDS ORDERED: *HR* OxyCODONE/APAP 5/325 TABLET PO PRN (14:58)
[2018-12-27 15:17] VITALS: BP 137/78
[2018-12-27] MEDS ORDERED: Sucralfate 1 GM TABLET PO SCH (16:30)
[2018-12-27] MEDS ORDERED: Mirtazapine 15 MG TABLET PO SCH (21:00)
[2018-12-27] MEDS ORDERED: Gabapentin 100 MG CAPSULE PO SCH (21:00)
[2018-12-30] MEDS ORDERED: Ergocalciferol (VIT D2) 50,000 UNIT (1.25MG) CAP PO SCH (07:23)
== END 2018-12-27 17:30 | disposition home or self-care (01) | DRG 552 ==
LOC: EMEROOARM 10:34 → 3BNU 10:34
PROVIDERS: ADMIT Internal Medicine; ATTEND Internal Medicine